=== PATIENT | female | born 1935 | race Caucasian/White ===

== ENCOUNTER 2016-03-15 09:10 | Outpatient (CLI) | payer MEDICARE | END 2016-03-15 09:11 | disposition home or self-care (01) | DX: M06.4 Inflammatory polyarthropathy (principal); M25.50 Pain in unspecified joint ==

== ENCOUNTER 2016-05-18 13:21 | Outpatient (CLI) | payer MEDICARE | END 2016-05-18 13:22 | disposition home or self-care (01) | DX: M81.0 Age-related osteoporosis without current pathological fracture (principal) ==

== ENCOUNTER 2016-06-04 08:35 | Outpatient (CLI) | payer MEDICARE | END 2016-06-04 08:36 | disposition home or self-care (01) | DX: I10 Essential (primary) hypertension (principal); R20.0 Anesthesia of skin ==

== ENCOUNTER 2016-07-09 12:57 | Outpatient (CLI) | payer MEDICARE ==
--- NOTE | 2016-07-10 14:46 | Ultrasound Report ---
BILATERAL CAROTID ARTERY ULTRASOUND: 07/09/2016 TECHNIQUE: Real-time sonographic vascular imaging was performed by the drupal developer through the carotid arteries utilizing both color-flow and Doppler spectral analysis. Multiple field representative/health education static images were saved for review. Vessel PSV cm/sec 2D Plaque Estimate % ICA/CCA PSV EDV cm/sec % Stenosis RCCA Prox 64 -- RCCA Dist 51 13 RECA 155 -- RT BULB 108 -- 2.12 21 CLAIRE Prox 98 -- 1.92 28 CLAIRE Mid 84 -- 1.65 25 CLAIRE Dist 65 -- 1.27 21 RVA 40 RVA flow direction: Antegrade. Vessel PSV cm/sec 2D Plaque Estimate % ICA/CCA PSV EDV cm/sec % Stenosis LCCA Prox 72 -- LCCA Dist 73 18 LECA 83 -- LFT BULB 341 -- 4.67 78 LICA Prox 162 -- 2.22 36 LICA Mid 105 -- 1.44 23 LICA Dist 68 -- 0.93 22 LVA 37 LVA flow direction: Antegrade. Velocity criteria are extrapolated from diameter data as defined by the Society of Radiologists in Ultrasound Consensus Conference Radiology 2003; 229; 340-346. Degree of Stenosis % ICA PSV cm/sec Plaque Estimate % ICA/CCA RSV Ratio ICA EDV cm/sec Normal < 125 None < 2.0 < 40 <50 < 125 < 50 < 2.0 < 40 50-69 125 - 130 >/= 50 2.0 - 4.0 40 - 100 >/= 70 but less than near occlusion > 230 >/= 50 > 4.0 > 100 Near occlusion High, low, or undetectable Visible lumen Variable Variable Total occlusion Undetectable No detectable lumen Not applicable Not applicable FINDINGS: A moderate amount of plaque is noted at the right carotid artery bifurcation. Some of the plaque is calcific and produces enough shadowing to obscure portions of the distal right common carotid artery and proximal right internal carotid artery. The Doppler values within the right internal carotid artery and right common carotid artery indicate no hemodynamically significant stenosis. With this degree of obscuration of the lumen of the distal right common carotid artery and proximal right internal carotid artery, be obscured. Recommend CTA of the carotid arteries for further evaluation. Left carotid artery demonstrates a significant amount of plaque at its bifurcation with extension into the left internal carotid artery. The plaque within the proximal left internal carotid artery is producing significant narrowing. This narrowing is greater than 70%. On the transverse images, it has the appearance of a stenosis in the 90% range. I strongly recommend, therefore, a contrast-enhanced CTA of the carotid arteries for further evaluation. Both vertebral arteries show antegrade flow. IMPRESSION: 1. MODERATE AMOUNT OF PLAQUE IS NOTED AT THE RIGHT CAROTID ARTERY BIFURCATION WITH EXTENSION INTO THE RIGHT INTERNAL CAROTID ARTERY. PART OF THIS PLAQUE IS CALCIFIC AND OBSCURING PORTIONS OF THE DISTAL RIGHT COMMON CAROTID ARTERY AND PROXIMAL RIGHT INTERNAL CAROTID ARTERY. RECOMMEND A CONTRAST-ENHANCED CTA OF THE CAROTID ARTERIES FOR FURTHER EVALUATION. 2. SIGNIFICANT AMOUNT OF PLAQUE IS NOTED AT THE LEFT CAROTID ARTERY BIFURCATION WITH EXTENSION TO THE LEFT INTERNAL CAROTID ARTERY. 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 STENOSIS COULD BE GREAT 90% CONSIDERING THE VISUAL IMAGES. STRONGLY RECOMMEND CONTRAST- ENHANCED CTA SOON POSSIBLE FOR FURTHER EVALUATION. COMMENT: Dr. Phan informed patient's physician, Dr. Chacko, of the above findings and recommendations on 07/09/2016 at 2:45 p.m. [facility]
== END 2016-07-09 12:58 | disposition home or self-care (01) ==
LOC: DI 12:57
PROVIDERS: ATTEND Family Medicine
DX: I65.22 Occlusion and stenosis of left carotid artery (principal)
CPT/HCPCS: 93880

== ENCOUNTER 2016-07-09 12:59 | Outpatient (CLI) | payer MEDICARE ==
--- NOTE | 2016-07-10 22:04 | Mammography Report ---
DIGITAL BILATERAL SCREENING MAMMOGRAM: 07/09/2016 CLINICAL HISTORY: This is a 80-year-old female in for routine screening mammogram. Patient has no family history of breast cancer. Patient has no prior breast biopsies. COMPARISON: 01/14/2006, 08/12/2008, 02/02/2014. TECHNIQUE: Craniocaudad and oblique lateral views of each breast were obtained with Hologic full field digital mammography. FINDINGS: Breast parenchyma is almost entirely composed of fat. No significant clusters of calcification are seen. No masses are noted. No change is detected. IMPRESSION: BREASTS APPEAR RADIOGRAPHICALLY BENIGN. BIRADS CATEGORY: 1, NEGATIVE. RECOMMENDATION: ANNUAL BILATERAL SCREENING MAMMOGRAPHY. STANDARD QUALIFYING STATEMENTS 1. This examination was reviewed with the aid of Computed-Aided Detection (CAD) . 2. A negative or benign imaging report should not delay biopsy if clinically suspicious findings are present. Consider surgical consultation if warranted. More than 5% of cancers are not identified by imaging. 3. Dense breasts may obscure an underlying neoplasm. JOB #: [id number] EXT JOB #: [id number] UZMA
== END 2016-07-09 13:00 | disposition home or self-care (01) ==
LOC: DI 12:59
PROVIDERS: ATTEND Family Medicine
DX: Z12.31 Encounter for screening mammogram for malignant neoplasm of breast (principal)
CPT/HCPCS: 77067

== ENCOUNTER 2016-08-13 11:41 | Outpatient (CLI) | payer MEDICARE | END 2016-08-13 11:42 | disposition home or self-care (01) | LOC: LAB.WCP 11:41 | PROVIDERS: ATTEND Family Medicine | DX: E53.8 Deficiency of other specified B group vitamins (principal) | CPT/HCPCS: 36415; 82607 ==

== ENCOUNTER 2016-09-24 10:19 | Outpatient (CLI) | payer MEDICARE ==
[2016-09-24 19:30] LABS: BASOPHILS % (AUTO) 0.5 %; EOSINOPHILS # (AUTO) 0.1 10^3/uL (0.0-0.7); EOSINOPHILS % (AUTO) 1.4 %; HCT - HEMATOCRIT 38.6 % (37.0-47.0); HGB - HEMOGLOBIN 12.7 g/dL (12.0-16.0); LYMPHOCYTES # (AUTO) 1.9 10^3/uL (1.5-3.5); MEAN CORPUSCULAR HEMOGLOBIN 32.1 pg (27.0-31.0); MEAN CORPUSCULAR VOLUME 97.4 fL (81.0-99.0); MEAN PLATELET VOLUME 10.4 fL (7.9-10.8); MONOCYTES # (AUTO) 0.6 10^3/uL (0.0-1.0); MONOCYTES % (AUTO) 9.9 %; NEUTROPHILS # (AUTO) 3.1 10^3/uL (1.5-6.6); NEUTROPHILS % (AUTO) 54.2 %; NUCLEATED RED BLOOD CELLS AUTO 0.1 /100WBC; RED BLOOD COUNT 3.96 10^6/uL (4.20-5.40); UNCORRECTED WHITE BLOOD COUNT 5.7 x10^3/uL; WHITE BLOOD COUNT 5.7 x10^3/uL (4.8-10.8)
[2016-09-24 20:07] LABS: FOLATE 11.26 ng/mL (5.90 - >24.8)
== END 2016-09-24 23:59 | disposition home or self-care (01) ==
LOC: LAB.WCP 10:19
PROVIDERS: ATTEND Family Medicine
DX: E53.8 Deficiency of other specified B group vitamins (principal)
CPT/HCPCS: 36415; 82607; 82746; 85025

== ENCOUNTER 2017-03-20 10:10 | Outpatient (CLI) | payer MEDICARE ==
[2017-03-20 13:18] LABS: ALBUMIN 4.2 g/dL (3.2-5.5); ALBUMIN/GLOBULIN RATIO 1.6 (1.0-2.2); ALKALINE PHOSPHATASE 76 IU/L (42-121); ALT ALANINE AMINOTRANSFERASE 17 IU/L (10-60); AST ASPARTATE AMINOTRANSFERASE 22 IU/L (10-42); BILIRUBIN,TOTAL 0.4 mg/dL (0.2-1.0); BUN - BLOOD UREA NITROGEN 8 mg/dL (6-20); CARBON DIOXIDE - CO2 24 mmol/L (21-32); CHLORIDE 102 mmol/L (101-111); CHOL/HDL RATIO 2.8 (<4.4); CHOLESTEROL 148 mg/dL; CREATININE 0.8 mg/dL (0.4-1.0); GFR - MDRD 69 (>89); GLUCOSE 80 mg/dL (70-100); HDL CHOLESTEROL 52 mg/dL; LDL CHOLESTEROL,CALCULATED 78 mg/dL; LDL/HDL RATIO 1.5 (<4.4); SODIUM 137 mmol/L (135-145); TOTAL PROTEIN 6.9 g/dL (6.7-8.2); VLDL CHOLESTEROL 18 mg/dL
== END 2017-03-20 10:11 | disposition home or self-care (01) ==
LOC: LAB.WCP 10:10
PROVIDERS: ATTEND Internal Medicine Cardiovascular Disease
DX: I25.119 Atherosclerotic heart disease of native coronary artery with unspecified angina pectoris (principal)
CPT/HCPCS: 36415; 80053; 80061; 83721

== ENCOUNTER 2017-07-10 09:20 | Outpatient (CLI) | payer MEDICARE | END 2017-07-10 09:21 | disposition short-term general hospital (02) | LOC: EMS 09:20 | PROVIDERS: ATTEND Surgery | DX: R07.9 Chest pain, unspecified (principal); R55 Syncope and collapse | CPT/HCPCS: A0425; A0427; A0888 ==

== ENCOUNTER 2017-07-30 11:25 | Outpatient (CLI) | payer MEDICARE ==
[2017-07-30 19:27] LABS: CALCIUM 9.1 mg/dL (8.5-10.3); CREATININE 0.7 mg/dL (0.4-1.0)
== END 2017-07-30 11:26 ==
LOC: LAB.WCP 11:25
PROVIDERS: ATTEND Family Medicine
DX: I10 Essential (primary) hypertension (principal)
CPT/HCPCS: 36415; 80048

== ENCOUNTER 2018-04-07 08:01 | Outpatient (CLI) | payer MEDICARE ==
[2018-04-07 12:18] LABS: BASOPHILS % (AUTO) 0.6 %; EOSINOPHILS # (AUTO) 0.1 10^3/uL (0.0-0.7); EOSINOPHILS % (AUTO) 1.4 %; HGB - HEMOGLOBIN 12.3 g/dL (12.0-16.0); LYMPHOCYTES # (AUTO) 2.6 10^3/uL (1.5-3.5); LYMPHOCYTES % (AUTO) 48.9 %; MEAN CORPUSCULAR HEMOGLOBIN 31.9 pg (27.0-31.0); MEAN CORPUSCULAR HGB CONC 33.5 g/dL (32.0-36.0); MEAN CORPUSCULAR VOLUME 95.3 fL (81.0-99.0); MONOCYTES # (AUTO) 0.4 10^3/uL (0.0-1.0); MONOCYTES % (AUTO) 7.7 %; NEUTROPHILS # (AUTO) 2.2 10^3/uL (1.5-6.6); NEUTROPHILS % (AUTO) 41.4 %; PLT - PLATELET COUNT 268 10^3/uL (130-450); RED BLOOD COUNT 3.85 10^6/uL (4.20-5.40); RED CELL DISTRIBUTION WIDTH 14.7 % (12.0-15.0); WHITE BLOOD COUNT 5.3 x10^3/uL (4.8-10.8)
[2018-04-07 13:06] LABS: ALBUMIN 4.1 g/dL (3.2-5.5); ALBUMIN/GLOBULIN RATIO 1.3 (1.0-2.2); ALKALINE PHOSPHATASE 83 IU/L (42-121); ALT ALANINE AMINOTRANSFERASE 21 IU/L (10-60); AST ASPARTATE AMINOTRANSFERASE 25 IU/L (10-42); BILIRUBIN,TOTAL 0.5 mg/dL (0.2-1.0); BUN - BLOOD UREA NITROGEN 9 mg/dL (6-20); CALCIUM 9.1 mg/dL (8.5-10.3); CARBON DIOXIDE - CO2 26 mmol/L (21-32); CHLORIDE 105 mmol/L (101-111); CHOL/HDL RATIO 2.5 (<4.4); CHOLESTEROL 179 mg/dL; CREATININE 0.7 mg/dL (0.4-1.0); GFR - MDRD 81 (>89); GLUCOSE 83 mg/dL (70-100); HDL CHOLESTEROL 73 mg/dL; LDL CHOLESTEROL,CALCULATED 82 mg/dL; LDL/HDL RATIO 1.1 (<4.4); SODIUM 139 mmol/L (135-145); TOTAL PROTEIN 7.2 g/dL (6.7-8.2); VLDL CHOLESTEROL 24 mg/dL
== END 2018-04-07 08:02 | disposition home or self-care (01) ==
LOC: LAB.WCP 08:01
PROVIDERS: ATTEND Family Medicine
DX: E53.8 Deficiency of other specified B group vitamins (principal); I25.10 Atherosclerotic heart disease of native coronary artery without angina pectoris
CPT/HCPCS: 36415; 80053; 80061; 82607; 83721; 83921; 85025

== ENCOUNTER 2018-10-21 16:30 | Outpatient (CLI) | payer MEDICARE | END 2018-10-21 23:59 | disposition home or self-care (01) | LOC: LAB.R 16:30 | PROVIDERS: ATTEND Family Medicine | DX: R35.0 Frequency of micturition (principal) | CPT/HCPCS: 87086 ==

== ENCOUNTER 2018-10-31 08:00 | Outpatient (CLI) | payer MEDICARE | END 2018-10-31 23:59 | disposition home or self-care (01) | LOC: LAB.WCP 08:00 | PROVIDERS: ATTEND Family Medicine | DX: R19.7 Diarrhea, unspecified (principal) | CPT/HCPCS: 81599; 87045; 87046; 87177; 87209; 87329; 87493 ==

== ENCOUNTER 2018-12-03 17:00 | Outpatient (CLI) | payer MEDICARE ==
[2018-12-03 13:19] LABS: H. PYLORIS ANTIGEN STL NEGATIVE (Negative)
== END 2018-12-03 23:59 | disposition home or self-care (01) ==
LOC: LAB.R 17:00
PROVIDERS: ATTEND Family Medicine
DX: K21.9 Gastro-esophageal reflux disease without esophagitis (principal)
CPT/HCPCS: 87338

== ENCOUNTER 2019-07-17 08:00 | Outpatient (CLI) | payer MEDICARE ==
[2019-07-17 14:09] LABS: ALBUMIN 4.1 g/dL (3.2-5.5); ALBUMIN/GLOBULIN RATIO 1.2 (1.0-2.2); ALKALINE PHOSPHATASE 87 IU/L (42-121); ALT ALANINE AMINOTRANSFERASE 22 IU/L (10-60); AST ASPARTATE AMINOTRANSFERASE 24 IU/L (10-42); BILIRUBIN,TOTAL 0.7 mg/dL (0.2-1.0); BUN - BLOOD UREA NITROGEN 12 mg/dL (6-20); CARBON DIOXIDE - CO2 25 mmol/L (21-32); CHLORIDE 107 mmol/L (101-111); CHOL/HDL RATIO 2.6 (<4.4); CHOLESTEROL 177 mg/dL; CREATININE 0.6 mg/dL (0.4-1.0); GLUCOSE 79 mg/dL (70-100); HDL CHOLESTEROL 67 mg/dL; LDL CHOLESTEROL,CALCULATED 87 mg/dL; LDL/HDL RATIO 1.3 (<4.4); SODIUM 140 mmol/L (135-145); TOTAL PROTEIN 7.4 g/dL (6.7-8.2); VLDL CHOLESTEROL 23 mg/dL
== END 2019-07-17 23:59 | disposition home or self-care (01) ==
LOC: LAB.WCP 08:00
PROVIDERS: ATTEND Hospitalist
DX: I25.10 Atherosclerotic heart disease of native coronary artery without angina pectoris (principal)
CPT/HCPCS: 36415; 80053; 80061; 83721

== ENCOUNTER 2019-09-10 10:24 | Outpatient (CLI) | payer MEDICARE ==
--- NOTE | 2019-09-10 10:57 | XRAY Report ---
Reason: ACUTE LOW BACK PAIN Procedure Date: 09/10/2019 Accession Number: [id number] / [id number] Procedure: WCP - Lumbar Spine 2 View CPT Code: Final Report FULL RESULT: PROCEDURE: Lumbar Spine 2 View INDICATIONS: Acute onset low back pain TECHNIQUE: 2 views of the lumbar spine were acquired. COMPARISON: None. FINDINGS: Bones: There are 5 nonrib-bearing lumbar-type vertebral bodies. There is dextroscoliosis in the lumbar spine centered at the L3-L4 level with approximately 18 degrees Vogt angle. There is approximately 3 mm lateral listhesis to the right of the L3 vertebral body with respect to L2. There is a mild rotational component to the scoliosis. There is no anterolisthesis or retrolisthesis. Age indeterminate wedging of the T12 vertebral body with approximately 10-15% height loss anteriorly and some indistinctness of the superior cortex. Vertebral body heights are otherwise maintained with intact cortical appearance. There is disc height loss from L1-L2 through L5-S1 with associated degenerative endplate change. Facet hypertrophy from L2 L3-L5 S1. Soft tissues: Overlying bowel gas pattern is normal. No suspicious soft tissue calcifications. IMPRESSION: Age-indeterminate height loss of the T12 vertebral body with some indistinctness of the superior cortex. Correlation for any point tenderness is requested, as there is some radiographic suspicion for acute compression fracture. If this is of clinical concern, further imaging evaluation could be performed with CT or MRI of the thoracolumbar junction. Reviewed by: Rudy Salamanca MD on 09/10/2019 10:56 AM PDT Approved by: Rudy Salamanca MD on 09/10/2019 10:56 AM PDT Station ID: [id number]
== END 2019-09-10 23:59 | disposition home or self-care (01) ==
LOC: DI.WCP 10:24
PROVIDERS: ATTEND Family Medicine
DX: R93.7 Abnormal findings on diagnostic imaging of other parts of musculoskeletal system (principal)
CPT/HCPCS: 72100

== ENCOUNTER 2019-09-10 18:24 | Outpatient (CLI) | payer MEDICARE | END 2019-09-10 18:25 | disposition EMS.NT | LOC: EMS 18:24 | PROVIDERS: ATTEND Surgery | DX: R53.1 Weakness (principal); M54.9 Dorsalgia, unspecified ==

== ENCOUNTER 2019-09-11 12:36 | Outpatient (CLI) | payer MEDICARE ==
--- NOTE | 2019-09-11 16:10 | CT Report ---
PROCEDURE: LUMBAR SPINE WO INDICATIONS: WEDGE COMPRESSION FRACTURE OF T11-T12 TECHNIQUE: Noncontrast 3 mm thick sections acquired from the T12 level to the sacrum. Sagittal and coronal refo rmats were constructed. For radiation dose reduction, the following was used: automated exposure co ntrol, adjustment of mA and/or kV according to patient size. COMPARISON: None. FINDINGS: Image quality: Excellent. Bones: There is normal bony alignment. There is approximately 17 degrees of convex right lumbar spi ne scoliosis. Loss of height noted in the T12 vertebral body compatible with acute compression fractu re. Compression fracture lucencies extend to the posterior cortex indicating burst type compression f racture. T12 compression fracture results in approximately 40% loss of normal vertebral body height. Minimally retropulsed bone fragment is associated with the T12 compression fracture which causes mild narrowing of the central canal without impingement upon the spinal cord. No suspicious lytic or cr tic bony lesions. No pars defects. Moderate L1-L2 degenerative disc changes. Mild to moderate L3-L4 and L5-S1 degenerative disc disease. Mild L2-L3 and L4-L5 degenerative disc disease. Mild L1-L2, L2- L3, L3-L4, L4-L5 and L5-S1 facet hypertrophy. Soft tissues: No retroperitoneal masses or hematomas. Visualized aorta is normal in caliber. Scatte red atherosclerotic calcifications are noted in the visualized abdominal and pelvic vasculature. Mu ltiple diverticuli noted in the visualized colon without evidence of diverticulitis. IMPRESSION: 1. Acute T12 burst-type compression fracture which results in approximately 40% loss of normal verteb ral body height. No kyphosis or significant retropulsion associated with the T12 compression fracture . 2. Multilevel degenerative disc disease. 3. Multilevel facet arthropathy. 4. No significant central canal narrowing. 5. No significant neural foraminal narrowing. 6. No neural compression. Reviewed by: Shelbi Conner MD, PhD on 09/11/2019 4:09 PM PDT Approved by: Shelbi Conner MD, PhD on 09/11/2019 4:09 PM PDT Station ID: [id number]
--- NOTE | 2019-09-11 16:29 | CT Report ---
PROCEDURE: THORACIC SPINE WO INDICATIONS: WEDGE COMPRESSION FRACTURE OF T11-T12 TECHNIQUE: Noncontrast 3 mm thick sections acquired through the region of interest in the thoracic spine. Sagit brain and coronal reformats were then constructed. For radiation dose reduction, the following was used : automated exposure control, adjustment of mA and/or kV according to patient size. COMPARISON: None. FINDINGS: Image quality: Excellent. Bones: There is normal overall bony alignment. Acute-appearing T4 and T12 compression deformities no wilma. T4 compression deformity results in approximately 10% loss of normal anterior vertebral body hei ght. The T12 compression deformity results in approximately 30-40% loss of normal vertebral body heig ht. T12 compression fracture extends to the posterior cortex compatible with burst type compression f racture with minimally retropulsed bone fragment. No kyphosis associated with either the T4 or T12 co mpression deformities. No suspicious sclerotic or lytic bony lesions. Mild degenerative disc changes noted throughout the thoracic spine. No significant central canal narrowing. No significant neural f oraminal narrowing. No definite neural compression. Soft tissues: No paravertebral masses or hematomas. Visualized posteromedial lungs appear clear. IMPRESSION: 1. Acute appearing T4 and T12 compression fractures. 2. Multilevel degenerative disc disease. 3. No significant central canal narrowing. 4. No significant neural foraminal narrowing. 5. No definite neural compression. Reviewed by: Shelbi Conner MD, PhD on 09/11/2019 4:27 PM PDT Approved by: Shelbi Conner MD, PhD on 09/11/2019 4:27 PM PDT Station ID: [id number]
== END 2019-09-11 12:37 | disposition home or self-care (01) ==
LOC: DI 12:36
PROVIDERS: ATTEND Family Medicine
DX: S22.081A Stable burst fracture of T11-T12 vertebra, initial encounter for closed fracture (principal); S22.040A Wedge compression fracture of fourth thoracic vertebra, initial encounter for closed fracture; M51.34 Other intervertebral disc degeneration, thoracic region; M51.36 Other intervertebral disc degeneration, lumbar region
CPT/HCPCS: 72128; 72131

== ENCOUNTER 2019-10-16 17:47 | Outpatient (CLI) | payer MEDICARE | END 2019-10-16 17:48 | disposition EMS.NT | LOC: EMS 17:47 | PROVIDERS: ATTEND Surgery | DX: F41.9 Anxiety disorder, unspecified (principal) ==

== ENCOUNTER 2019-10-23 20:14 | Outpatient (CLI) | payer MEDICARE | END 2019-10-23 20:15 | disposition EMS.NT | LOC: EMS 20:14 | PROVIDERS: ATTEND Surgery | DX: Z03.89 Encounter for observation for other suspected diseases and conditions ruled out (principal) ==

== ENCOUNTER 2020-01-05 08:00 | Outpatient (CLI) | payer MEDICARE ==
[2020-01-05 17:47] LABS: BASOPHILS % (AUTO) 0.5 %; EOSINOPHILS % (AUTO) 0.6 %; HGB - HEMOGLOBIN 12.4 g/dL (12.0-16.0); LYMPHOCYTES # (AUTO) 2.5 10^3/uL (1.5-3.5); LYMPHOCYTES % (AUTO) 39.3 %; MEAN CORPUSCULAR HEMOGLOBIN 32.6 pg (27.0-31.0); MEAN CORPUSCULAR HGB CONC 32.7 g/dL (32.0-36.0); MEAN CORPUSCULAR VOLUME 99.7 fL (81.0-99.0); MEAN PLATELET VOLUME 11.7 fL (7.9-10.8); MONOCYTES # (AUTO) 0.6 10^3/uL (0.0-1.0); NEUTROPHILS # (AUTO) 3.2 10^3/uL (1.5-6.6); NEUTROPHILS % (AUTO) 50.4 %; PLT - PLATELET COUNT 299 10^3/uL (130-450); RED CELL DISTRIBUTION WIDTH 13.5 % (12.0-15.0); WHITE BLOOD COUNT 6.4 x10^3/uL (4.8-10.8)
[2020-01-05 18:18] LABS: ALBUMIN 4.1 g/dL (3.2-5.5); ALBUMIN/GLOBULIN RATIO 1.5 (1.0-2.2); ALKALINE PHOSPHATASE 99 IU/L (42-121); ALT ALANINE AMINOTRANSFERASE 30 IU/L (10-60); AST ASPARTATE AMINOTRANSFERASE 32 IU/L (10-42); BILIRUBIN,TOTAL 0.9 mg/dL (0.2-1.0); BUN - BLOOD UREA NITROGEN 11 mg/dL (6-20); CALCIUM 9.2 mg/dL (8.5-10.3); CARBON DIOXIDE - CO2 24 mmol/L (21-32); CHLORIDE 108 mmol/L (101-111); CHOL/HDL RATIO 2.4 (<4.4); CHOLESTEROL 156 mg/dL; CREATININE 0.6 mg/dL (0.4-1.0); GLUCOSE 94 mg/dL (70-100); HDL CHOLESTEROL 64 mg/dL; LDL CHOLESTEROL,CALCULATED 72 mg/dL; LDL/HDL RATIO 1.1 (<4.4); SODIUM 140 mmol/L (135-145); TOTAL PROTEIN 6.9 g/dL (6.7-8.2); VLDL CHOLESTEROL 20 mg/dL
== END 2020-01-05 23:59 | disposition home or self-care (01) ==
LOC: LAB.WCP 08:00
PROVIDERS: ATTEND Family Medicine
DX: I25.10 Atherosclerotic heart disease of native coronary artery without angina pectoris (principal); E53.8 Deficiency of other specified B group vitamins
CPT/HCPCS: 36415; 80053; 80061; 82607; 83721; 84443; 85025

== ENCOUNTER 2020-08-02 19:27 | Emergency (ER) | payer MEDICARE ==
--- NOTE | 2020-08-02 20:01 | ED Physician Documentation ---
History of Present Illness - Stated complaint Stated Complaint: RT ARM PX - Chief complaint Chief Complaint: Ext Problem - Additonal information Additional information: 85-year-old female presents to the emergency department for evaluation of 2 to 3 weeks right shoulder pain. She reports she injured it pushing herself up from the bathtub. However she did not have any fall or other known trauma. No swelling or erythema. No fevers. Patient is quite quiet she is also frustrated she seems upset about the poor health of her who is bedbound. She has taken in Tylenol as well as used icy hot which has helped somewhat with the pain Review of Systems Constitutional: denies: Fever, Chills Eyes: reports: Reviewed and negative Ears: reports: Reviewed and negative Nose: reports: Reviewed and negative Throat: reports: Reviewed and negative Cardiac: reports: Reviewed and negative Respiratory: reports: Reviewed and negative GI: reports: Reviewed and negative Musculoskeletal: reports: Joint pain (Right shoulder) Neurologic: reports: Reviewed and negative PD PAST MEDICAL HISTORY - Past Medical History Past Medical History: Yes Cardiovascular: Coronary artery disease - Past Surgical History 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 Cardiovascular: Coronary stent - Present Medications Home Medications: Ambulatory Orders Medication Instructions Recorded Confirmed Home Medications Unobtainable 08/02/20 08/02/20 [HOME MEDICATIONS UNOBTAINABLE] - Allergies Allergies/Adverse Reactions: Allergies Allergy/AdvReac Type Severity Reaction Status Date / Time butorphanol [From Stadol] Allergy Hallucinati Verified 08/02/20 19:40 ons cephalexin [From Keflex] Allergy Hives Verified 08/02/20 19:40 erythromycin base Allergy Nausea Verified 08/02/20 19:40 methotrexate Allergy Unknown Verified 08/02/20 19:40 - Social History Does the pt smoke?: No Smoking Status: Never smoker Does the pt drink ETOH?: No Does the pt have substance abuse?: No - Immunizations Immunizations are current?: Yes PD ED PE EXPANDED - General General: Alert, Other - Extremities Extremities: Right shoulder (mild tenderness with palpationof bicepital tendon. FULL ROM in all planes. negative for impingment. no swelling, erythema. No pain in elbow, wrist elicited) Results - Vitals Vitals: Vital Signs - 24 hr 08/02/20 08/02/20 19:35 19:55 Temperature 36.2 C L 36.3 C L Heart Rate 66 67 Respiratory 16 16 Rate Blood Pressure 140/69 H 140/69 H O2 Saturation 98 98 Oxygen O2 Source Room air - Rads (name of study) right shoulder Radiology: Final report received (No acute finding. Chronic degenerative changes.) PD MEDICAL DECISION MAKING - ED course Complexity details: reviewed results, re-evaluated patient, d/w patient ED course: 85-year-old female presents the emergency department for evaluation of a few weeks right shoulder pain. Most of the pain is near the bicipital tendon. However she does not have any signs of impingement on exam. X-ray suggests arthritis but no acute fracture or dislocation. History is not consistent with an infection. I suspect that she would benefit from long-term evaluation with physical therapy to help improve the symptoms. She does have relief of symptoms with Tylenol as well as [id number] IcyHot. Departure - Departure Disposition: 01 Home, Self Care Clinical Impression: Right shoulder pain Qualifiers: Chronicity: acute Qualified Code(s): M25.511 - Pain in right shoulder Sprain of right shoulder Qualifiers: Encounter type: initial encounter Shoulder sprain type: unspecified sprain Qualified Code(s): S43.401A - Unspecified sprain of right shoulder joint, initial encounter Condition: Stable Record reviewed to determine appropriate education?: Yes Instructions: ED Strain Muscle Ext Comments: The x-ray of your shoulder shows that you are developing arthritis in it. I do suspect a mild sprain as well. I think that this will get better with time if you can avoid the movements that cause the pain. I have prescribed a little bit of hydrocodone to help with the severe pain. It is important that you continue to move your shoulder though to prevent it from getting should frozen Please discuss this ED visit with your primary care provider. You may benefit from referral to physical therapy for your shoulder.
--- NOTE | 2020-08-02 20:23 | XRAY Report ---
PROCEDURE: Shoulder 3 View RT INDICATIONS: Pain TECHNIQUE: 4 views of the shoulder were acquired. COMPARISON: None. FINDINGS: Bones: No acute fracture. Severe osteophytic changes of the glenohumeral joint. Elevation of the jordan sage suggesting chronic rotator cuff tear. Soft tissues: No suspicious soft tissue calcifications. IMPRESSION: No acute finding. Chronic degenerative changes. Reviewed by: Rudy Salamanca MD on 08/02/2020 8:22 PM PDT Approved by: Rudy Salamanca MD on 08/02/2020 8:22 PM PDT Station ID: [id number]
[2020-08-02 21:16] VITALS: BP 138/70
== END 2020-08-02 21:14 | disposition home or self-care (01) ==
LOC: ED 19:27
DX: S43.401A Unspecified sprain of right shoulder joint, initial encounter (principal); X58.XXXA Exposure to other specified factors, initial encounter; Y93.E1 Activity, personal bathing and showering
CPT/HCPCS: 99283

== ENCOUNTER 2020-09-12 13:05 | Outpatient (CLI) | payer MEDICARE ==
[~2020-09-12 13:05] MED LIST: BUFFERED LIDOCAINE 10 ML SYRINGE ONE; ROPIVACAINE 0.5% PF 20 ML AMPULE ONE; TRIAMCINOLONE 40 MG/ML VIAL ONE
[2020-09-12] MEDS ORDERED: iohexoL-240 10 ML VIAL IVP ONE (14:03)
[2020-09-12] MEDS ORDERED: ROPIVACAINE 0.5% PF 20 ML AMPULE EP ONE (14:04)
[2020-09-12] MEDS ORDERED: BUFFERED LIDOCAINE 10 ML SYRINGE IU ONE (14:05)
[2020-09-12] MEDS ORDERED: TRIAMCINOLONE 40 MG/ML VIAL IM ONE (14:05)
--- NOTE | 2020-09-12 15:22 | XRAY Report ---
PROCEDURE: Inj/Aspiration Major Joint INDICATIONS: OSTEOARTHRITIS RIGHT GLENOHUMERAL JOINT CONTRAST: CONTRAST: omnipaque 240 FLUORO TIME: FLUORO TIME: 0.6 min and NUMBER IMAGES: 3 TECHNIQUE: The indications, alternatives, benefits, risks, and complications of the procedure were explained to the patient. Written informed consent was obtained and placed in the chart. The patient was placed in an appropriate position on the fluoroscopy table, and a site was chosen for percutaneous access un umair fluoroscopic guidance. Local anesthetic was administered using a 1% lidocaine solution. A hypod ermic or spinal needle was then used to access the symptomatic joint. Intra-articular location of th e needle tip was confirmed by injecting a small amount of contrast, followed by steroid administratio n. The needle was then withdrawn, and a bandage applied to the puncture site. FINDINGS: Joint injected: Right glenohumeral joint Medications injected: 7 mL of 40 mg/mL Kenalog and 0.5% Ropivacaine mixture. Complications: None. Preinjection pain: 10 out of 10 Postinjection pain: 3 out of 10 IMPRESSION: Successful fluoroscopically guided administration of steroid and anaesthetic solution into the right glenohumeral joint. Reviewed by: Demetra Dawson MD on 09/12/2020 3:21 PM PDT Approved by: Demetra Dawson MD on 09/12/2020 3:21 PM PDT Station ID: [id number]
== END 2020-09-12 13:06 | disposition home or self-care (01) ==
LOC: DI 13:05
PROVIDERS: ATTEND Orthopaedic Surgery
DX: M19.011 Primary osteoarthritis, right shoulder (principal)
CPT/HCPCS: 20610; 77002; Q9966

== ENCOUNTER 2020-11-14 09:05 | Outpatient (CLI) | payer MEDICARE ==
[2020-11-14 12:00] LABS: BASOPHILS % (AUTO) 0.5 %; EOSINOPHILS # (AUTO) 0.1 10^3/uL (0.0-0.7); EOSINOPHILS % (AUTO) 0.8 %; HCT - HEMATOCRIT 39.5 % (37.0-47.0); HGB - HEMOGLOBIN 12.8 g/dL (12.0-16.0); LYMPHOCYTES # (AUTO) 1.9 10^3/uL (1.5-3.5); LYMPHOCYTES % (AUTO) 31.1 %; MEAN CORPUSCULAR HGB CONC 32.4 g/dL (32.0-36.0); MEAN CORPUSCULAR VOLUME 101.8 fL (81.0-99.0); MEAN PLATELET VOLUME 11.5 fL (7.9-10.8); MONOCYTES # (AUTO) 0.7 10^3/uL (0.0-1.0); MONOCYTES % (AUTO) 10.6 %; NEUTROPHILS # (AUTO) 3.5 10^3/uL (1.5-6.6); NEUTROPHILS % (AUTO) 56.8 %; PLT - PLATELET COUNT 324 10^3/uL (130-450); RED BLOOD COUNT 3.88 10^6/uL (4.20-5.40); RED CELL DISTRIBUTION WIDTH 14.3 % (12.0-15.0); WHITE BLOOD COUNT 6.2 x10^3/uL (4.8-10.8)
[2020-11-14 12:18] LABS: ALBUMIN 4.4 g/dL (3.2-5.5); ALBUMIN/GLOBULIN RATIO 1.6 (1.0-2.2); ALKALINE PHOSPHATASE 64 IU/L (42-121); ALT ALANINE AMINOTRANSFERASE 33 IU/L (10-60); AST ASPARTATE AMINOTRANSFERASE 32 IU/L (10-42); BILIRUBIN,TOTAL 0.9 mg/dL (0.2-1.0); BUN - BLOOD UREA NITROGEN 9 mg/dL (6-20); CALCIUM 9.2 mg/dL (8.5-10.3); CARBON DIOXIDE - CO2 26 mmol/L (21-32); CHLORIDE 99 mmol/L (101-111); CHOL/HDL RATIO 2.2 (<4.4); CHOLESTEROL 162 mg/dL; CREATININE 0.6 mg/dL (0.4-1.0); GFR - MDRD 95 (>89); GLUCOSE 102 mg/dL (70-100); HDL CHOLESTEROL 73 mg/dL; LDL CHOLESTEROL,CALCULATED 71 mg/dL; POTASSIUM 4.2 mmol/L (3.5-5.0); SODIUM 135 mmol/L (135-145); TOTAL PROTEIN 7.1 g/dL (6.7-8.2); TRIGLYCERIDES 90 mg/dL; VLDL CHOLESTEROL 18 mg/dL
== END 2020-11-14 23:59 | disposition home or self-care (01) ==
LOC: LAB.WCP 09:05
PROVIDERS: ATTEND Family Medicine
DX: I10 Essential (primary) hypertension (principal); I25.10 Atherosclerotic heart disease of native coronary artery without angina pectoris; E53.8 Deficiency of other specified B group vitamins
CPT/HCPCS: 36415; 80053; 80061; 82607; 83721; 85025

== ENCOUNTER 2021-07-04 11:11 | Outpatient (CLI) | payer MEDICARE ==
[2021-07-04 17:59] LABS: ALBUMIN 4.5 g/dL (3.2-5.5); ALBUMIN/GLOBULIN RATIO 1.7 (1.0-2.2); ALKALINE PHOSPHATASE 64 IU/L (42-121); ALT ALANINE AMINOTRANSFERASE 19 IU/L (10-60); AST ASPARTATE AMINOTRANSFERASE 21 IU/L (10-42); BILIRUBIN,TOTAL 0.4 mg/dL (0.2-1.0); BUN - BLOOD UREA NITROGEN 12 mg/dL (6-20); CARBON DIOXIDE - CO2 24 mmol/L (21-32); CHLORIDE 100 mmol/L (101-111); CHOL/HDL RATIO 2.9 (<4.4); CHOLESTEROL 175 mg/dL; CREATININE 0.8 mg/dL (0.4-1.0); GFR - MDRD 69 (>89); GLUCOSE 120 mg/dL (70-100); HDL CHOLESTEROL 60 mg/dL; LDL CHOLESTEROL,CALCULATED 78 mg/dL; LDL/HDL RATIO 1.3 (<4.4); POTASSIUM 5.1 mmol/L (3.5-5.0); SODIUM 133 mmol/L (135-145); TOTAL PROTEIN 7.1 g/dL (6.7-8.2); TRIGLYCERIDES 185 mg/dL; VLDL CHOLESTEROL 37 mg/dL
[2021-07-04 18:16] LABS: BASOPHILS % (AUTO) 0.6 %; EOSINOPHILS % (AUTO) 0.6 %; HCT - HEMATOCRIT 37.3 % (37.0-47.0); HGB - HEMOGLOBIN 12.2 g/dL (12.0-16.0); LYMPHOCYTES # (AUTO) 2.6 10^3/uL (1.5-3.5); LYMPHOCYTES % (AUTO) 35.6 %; MEAN CORPUSCULAR HEMOGLOBIN 33.1 pg (27.0-31.0); MEAN CORPUSCULAR HGB CONC 32.7 g/dL (32.0-36.0); MEAN CORPUSCULAR VOLUME 101.1 fL (81.0-99.0); MEAN PLATELET VOLUME 11.1 fL (7.9-10.8); MONOCYTES # (AUTO) 0.6 10^3/uL (0.0-1.0); MONOCYTES % (AUTO) 8.7 %; NEUTROPHILS # (AUTO) 3.9 10^3/uL (1.5-6.6); NEUTROPHILS % (AUTO) 54.2 %; PLT - PLATELET COUNT 341 10^3/uL (130-450); RED BLOOD COUNT 3.69 10^6/uL (4.20-5.40); RED CELL DISTRIBUTION WIDTH 13.5 % (12.0-15.0); WHITE BLOOD COUNT 7.2 x10^3/uL (4.8-10.8)
[2021-07-04 20:55] LABS: ESTIMATED AVERAGE GLUCOSE 105 mg/dL (70-100); HEMOGLOBIN A1c% 5.3 % (4.27-6.07)
== END 2021-07-04 11:12 | disposition home or self-care (01) ==
LOC: LAB.N 11:11
PROVIDERS: ATTEND Family Medicine
DX: I10 Essential (primary) hypertension (principal); I63.9 Cerebral infarction, unspecified; E53.8 Deficiency of other specified B group vitamins; R73.01 Impaired fasting glucose
CPT/HCPCS: 36415; 80053; 80061; 82607; 83036; 83721; 85025

== ENCOUNTER 2022-04-03 09:39 | Outpatient (CLI) | payer MEDICARE | END 2022-04-03 09:40 | disposition critical access hospital (66) | LOC: EMS 09:39 | DX: R41.0 Disorientation, unspecified (principal); R41.89 Other symptoms and signs involving cognitive functions and awareness | CPT/HCPCS: A0425; A0429 ==

== ENCOUNTER 2022-04-03 09:57 | Observation (INO) | payer MEDICARE ==
[2022-04-03] MEDS ORDERED: SODIUM CHLORIDE 0.9% 500 ML IV STA (10:16)
[2022-04-03 10:23] LABS: BASOPHILS % (AUTO) 0.2 %; HCT - HEMATOCRIT 37.1 % (37.0-47.0); HGB - HEMOGLOBIN 12.3 g/dL (12.0-16.0); LYMPHOCYTES # (AUTO) 1.2 10^3/uL (1.5-3.5); MEAN CORPUSCULAR HGB CONC 33.2 g/dL (32.0-36.0); MEAN CORPUSCULAR VOLUME 96.6 fL (81.0-99.0); MEAN PLATELET VOLUME 10.6 fL (7.9-10.8); MONOCYTES # (AUTO) 0.8 10^3/uL (0.0-1.0); MONOCYTES % (AUTO) 8.9 %; NEUTROPHILS # (AUTO) 7.2 10^3/uL (1.5-6.6); NEUTROPHILS % (AUTO) 77.7 %; PLT - PLATELET COUNT 297 10^3/uL (130-450); RED BLOOD COUNT 3.84 10^6/uL (4.20-5.40); RED CELL DISTRIBUTION WIDTH 13.5 % (12.0-15.0); WHITE BLOOD COUNT 9.2 x10^3/uL (4.8-10.8)
--- NOTE | 2022-04-03 10:23 | ED Physician Documentation ---
PD HPI ALTERED MENTAL STATUS - Stated complaint Stated Complaint: CODE STROKE - Chief complaint Chief Complaint: Neuro - History obtained from History obtained from: Patient (she is unable to give history herself - obtained from EMS/family.), Family, EMS - History of Present Illness Timing - onset: How many days ago (Reportedly onset about 4 days ago of some confusion and incoordination. She typically interacts well and writes in a journal. The handwriting and content have been worsening in retrospect and today the patient was not expressing any verbal and poorly following commands.) Timing - details: Gradual onset, Still present (worsened today.) Quality / character: Less responsive, Confused, Other (nonverbal/aphasia.) Associated symptoms: Seizure activity (no witnessed but patient was noted to have tongue abrasion by family.). No: Fever Contributing factors: Anticoagulated (plavix), Other (reportedly prior stroke without unilateral deficits.). No: Diabetic, Known dementia Basline status: Alert and oriented X 3, Ambulatory, Other (family told EMS that patient is usually ambulatory and does write in a journal daily.) Treatment [employer]: Accucheck Similar symptoms before: Has not had sx before Recently seen: Not recently seen Review of Systems Unable to obtain: AMS (with confused and expressive aphasia, agnosia.) PD PAST MEDICAL HISTORY - Past Medical History Cardiovascular: Hypertension Respiratory: None Neuro: CVA GI: None - Present Medications Home Medications: Ambulatory Orders Medication Instructions Recorded Confirmed Atorvastatin Calcium [Lipitor] 80 mg PO QPM 06/02/21 04/03/22 Clopidogrel [Plavix] 1 tab PO DAILY 06/02/21 04/03/22 Famotidine [Pepcid] 20 mg PO DAILY 06/02/21 04/03/22 Metoprolol Succinate [Toprol Xl] 50 mg PO DAILY 06/02/21 04/03/22 Aspirin [[place] Aspirin] 81 mg PO DAILY 04/03/22 04/03/22 Nitroglycerin [Nitrostat] 0.4 mg SL Q5MIN PRN 04/03/22 04/03/22 - Allergies Allergies/Adverse Reactions: Allergies Allergy/AdvReac Type Severity Reaction Status Date / Time losartan Allergy Intermediate Itching Verified 04/03/22 14:42 lisinopril AdvReac Intermediate Cough Verified 04/03/22 14:42 PD ED PE NORMAL - Vitals Vital signs reviewed: Yes - General General: No acute distress, Well developed/nourished, Other (she is not interacting with me on exam, looking elsewhere as i talk iwth her. Not following direction. does have open eyes and sitting up on her own, so not sleepy nor delerious. Just poor interaction and aphasia. seems indifferent to surroundings. ) - HEENT HEENT: Atraumatic, PERRL, EOMI, Other (abrasion/lac right side of tongue.) - Neck Neck: Supple, no meningeal sign, No bony TTP, No adenopathy - Cardiac Cardiac: RRR, No murmur - Respiratory Respiratory: Clear bilaterally - Abdomen Abdomen: Soft, Non tender - Derm Derm: Normal color, Warm and dry - Extremities Extremities: Normal ROM s pain, No edema, No calf tenderness / cord - Neuro Neuro: market reporter 2-12 intact, No motor deficit Eye Opening: Spontaneous Motor: Obeys Commands Verbal: Incomprehensible GCS Score: 12 - Psych Psych: No: Normal affect (flat and noninteractive) NIHSS - Level of Consciousness Level of consciousness: (0) Alert, Keenly responsive LOC Questions: (2) Answers neither correct LOC Commands: (2)Performs none - Gaze Best Gaze: (0) Normal - Visual Visual: (0) No loss - Facial Palsy Facial Palsy: (0) Normal, symmetrical movement - Motor Arms (both separate) Motor Arm (right): (3) No effort against gravity Motor Arm (left): (1) Drift - Motor Legs (both separate) Motor Leg (right): (3) No effort against gravity Motor Leg (left): (2) Some effort against gravity - Limb Ataxia Limb Ataxia: (2) Present in 2 limbs - Sensory Sensory: (1) Lacr-ne-okgcezak loss - Best Language Best Language: (2) Severe aphasia - Dysarthria Dysarthria: (0) Normal - Extinction and Inattention (formally neg Extinction and inattention: (1) Visual,tactile,auditory,spatial, or personal inattention - Total Score/Results Total Score/Result: 19 Results - Vitals Vitals: Vital Signs - 24 hr 04/03/22 04/03/22 04/03/22 10:13 11:14 11:38 Temperature 37.1 C Heart Rate 88 95 88 Respiratory 18 18 18 Rate Blood Pressure 186/99 H 181/70 H 188/75 H O2 Saturation 100 99 100 04/03/22 04/03/22 04/03/22 12:37 13:15 13:49 Temperature Heart Rate 82 97 89 Respiratory 18 18 18 Rate Blood Pressure 151/74 H 176/109 H 182/89 H O2 Saturation 98 99 99 04/03/22 14:13 Temperature Heart Rate 80 Respiratory 18 Rate Blood Pressure 161/150 H O2 Saturation 100 Oxygen O2 Source Room air - Labs Labs: Laboratory Tests 04/03/22 04/03/22 04/03/22 10:17 10:17 10:17 WBC 9.2 RBC 3.84 L Hgb 12.3 Hct 37.1 MCV 96.6 MCH 32.0 H MCHC 33.2 RDW 13.5 Plt Count 297 MPV 10.6 Neut # (Auto) 7.2 H Lymph # (Auto) 1.2 L [place] # (Auto) 0.8 Eos # (Auto) 0.0 Baso # (Auto) 0.0 Absolute Nucleated RBC 0.00 Nucleated RBC % 0.0 ESR PT 11.1 INR 1.0 Sodium 130 L Potassium 3.7 Chloride 96 L Carbon Dioxide 22 Anion Gap 12.0 BUN 7 Creatinine 0.6 Estimated GFR (MDRD) 95 Glucose 108 H POC Whole Bld Glucose Calcium 9.2 Magnesium 2.1 Total Bilirubin 1.0 AST 22 ALT 17 Alkaline Phosphatase 70 Total Protein 7.3 Albumin 4.5 Globulin 2.8 Albumin/Globulin Ratio 1.6 Lipase 44 Urine Color Urine Clarity Urine pH Ur Specific [place] Urine Protein Urine Glucose (UA) Urine Ketones Urine Occult Blood Urine Nitrite Urine Bilirubin Urine Urobilinogen Ur Leukocyte Esterase Ur Microscopic Review Urine Culture Comments Nasal Adenovirus (PCR) Nasal B. parapertussis DNA (PCR) Nasal Coronavir 229E PCR Nasal Coronavir HKU1 PCR Nasal Coronavir NL63 PCR Nasal Coronavir OC43 PCR Nasal Enterovir/Rhinovir PCR Nasal Influenza B PCR Nasal Influenza A PCR Nasal Parainfluen 1 PCR Nasal Parainfluen 2 PCR Nasal Parainfluen 3 PCR Nasal Parainfluen 4 PCR Nasal RSV (PCR) Nasal B.pertussis DNA PCR Nasal C.pneumoniae (PCR) Joshua Human Metapneumo PCR Nasal M.pneumoniae (PCR) Nasal SARS-CoV-2 (PCR) Urine Opiates Screen Ur Oxycodone Screen Urine Methadone Screen Ur Propoxyphene Screen Ur Barbiturates Screen Ur Tricyclics Screen Ur Phencyclidine Scrn Ur Amphetamine Screen U Methamphetamines Scrn U Benzodiazepines Scrn Urine Cocaine Screen U Cannabinoids Screen Ethyl Alcohol < 5.0 04/03/22 04/03/22 04/03/22 10:17 10:55 10:59 WBC RBC Hgb Hct MCV MCH MCHC RDW Plt Count MPV Neut # (Auto) Lymph # (Auto) [place] # (Auto) Eos # (Auto) Baso # (Auto) Absolute Nucleated RBC Nucleated RBC % ESR 19 PT INR Sodium Potassium Chloride Carbon Dioxide Anion Gap BUN Creatinine Estimated GFR (MDRD) Glucose POC Whole Bld Glucose 91 Calcium Magnesium Total Bilirubin AST ALT Alkaline Phosphatase Total Protein Albumin Globulin Albumin/Globulin Ratio Lipase Urine Color Urine Clarity Urine pH Ur Specific [place] Urine Protein Urine Glucose (UA) Urine Ketones Urine Occult Blood Urine Nitrite Urine Bilirubin Urine Urobilinogen Ur Leukocyte Esterase Ur Microscopic Review Urine Culture Comments Nasal Adenovirus (PCR) NOT DETECTED Nasal B. parapertussis DNA (PCR) NOT DETECTED Nasal Coronavir 229E PCR NOT DETECTED Nasal Coronavir HKU1 PCR NOT DETECTED Nasal Coronavir NL63 PCR NOT DETECTED Nasal Coronavir OC43 PCR NOT DETECTED Nasal Enterovir/Rhinovir PCR NOT DETECTED Nasal Influenza B PCR NOT DETECTED Nasal Influenza A PCR NOT DETECTED Nasal Parainfluen 1 PCR NOT DETECTED Nasal Parainfluen 2 PCR NOT DETECTED Nasal Parainfluen 3 PCR NOT DETECTED Nasal Parainfluen 4 PCR NOT DETECTED Nasal RSV (PCR) NOT DETECTED Nasal B.pertussis DNA PCR NOT DETECTED Nasal C.pneumoniae (PCR) NOT DETECTED Joshua Human Metapneumo PCR NOT DETECTED Nasal M.pneumoniae (PCR) NOT DETECTED Nasal SARS-CoV-2 (PCR) NOT DETECTED Urine Opiates Screen Ur Oxycodone Screen Urine Methadone Screen Ur Propoxyphene Screen Ur Barbiturates Screen Ur Tricyclics Screen Ur Phencyclidine Scrn Ur Amphetamine Screen U Methamphetamines Scrn U Benzodiazepines Scrn Urine Cocaine Screen U Cannabinoids Screen Ethyl Alcohol 04/03/22 10:59 WBC RBC Hgb Hct MCV MCH MCHC RDW Plt Count MPV Neut # (Auto) Lymph # (Auto) [place] # (Auto) Eos # (Auto) Baso # (Auto) Absolute Nucleated RBC Nucleated RBC % ESR PT INR Sodium Potassium Chloride Carbon Dioxide Anion Gap BUN Creatinine Estimated GFR (MDRD) Glucose POC Whole Bld Glucose Calcium Magnesium Total Bilirubin AST ALT Alkaline Phosphatase Total Protein Albumin Globulin Albumin/Globulin Ratio Lipase Urine Color LIGHT YELLOW Urine Clarity CLEAR Urine pH 7.0 Ur Specific [place] 1.010 Urine Protein NEGATIVE Urine Glucose (UA) NEGATIVE Urine Ketones 15 H Urine Occult Blood NEGATIVE Urine Nitrite NEGATIVE Urine Bilirubin NEGATIVE Urine Urobilinogen 0.2 (NORMAL) Ur Leukocyte Esterase NEGATIVE Ur Microscopic Review NOT INDICATED Urine Culture Comments NOT INDICATED Nasal Adenovirus (PCR) Nasal B. parapertussis DNA (PCR) Nasal Coronavir 229E PCR Nasal Coronavir HKU1 PCR Nasal Coronavir NL63 PCR Nasal Coronavir OC43 PCR Nasal Enterovir/Rhinovir PCR Nasal Influenza B PCR Nasal Influenza A PCR Nasal Parainfluen 1 PCR Nasal Parainfluen 2 PCR Nasal Parainfluen 3 PCR Nasal Parainfluen 4 PCR Nasal RSV (PCR) Nasal B.pertussis DNA PCR Nasal C.pneumoniae (PCR) Joshua Human Metapneumo PCR Nasal M.pneumoniae (PCR) Nasal SARS-CoV-2 (PCR) Urine Opiates Screen NEGATIVE Ur Oxycodone Screen NEGATIVE Urine Methadone Screen NEGATIVE Ur Propoxyphene Screen NEGATIVE Ur Barbiturates Screen NEGATIVE Ur Tricyclics Screen NEGATIVE Ur Phencyclidine Scrn NEGATIVE Ur Amphetamine Screen NEGATIVE U Methamphetamines Scrn NEGATIVE U Benzodiazepines Scrn NEGATIVE Urine Cocaine Screen NEGATIVE U Cannabinoids Screen NEGATIVE Ethyl Alcohol - Rads (name of study) head and neck CTA Radiology: Prelim report reviewed (70% right ICA stenosis. 90% vertebral V4 level stenosis 90%. No bleed, no masses. ), See rad report PD Medical Decision Making - ED course Complexity details: reviewed results, considered differential, d/w patient (the patient was not able to answer questions due to her aphasia. Info mainly from family and EMS. ), d/w family, d/w outside solar sales consultant (discussed with stroke neurologist who stated no interventions of lytics nor endovascular approach. advised eval for cva. then discussed with Hospitalist. ) Reviewed Lab Results: I ordered and reviewed chemistry panel and blood count, also ESR to eval for vasculitis and elecrolyte abnormalities in particular. Blood count to evaluate WBC for potential infectious cause. Mostly seems likely cerebrovascular in etiology. Social Determinants of Health: lives at home with family members/daughter. ED course: patient with apparent receptive and expressive aphasia and indifference. Some brief floowing of commands, such as to open mouth, but generally not following direction. No signs of bleed/mass/edema nor LVO on cT/CTA. Will need MRI for full evaluation. Presume cva. - Consults Consults: Consulted (name) (Rosa Isela), Discussed case with (Stroke Neurology), Other (The stroke neurologist said he was unable to see the images as apparently we are having difficulty pushing them to his facility. However I did read the radiology report and he said there would be no acute intervention and advised further stroke work-up with MRI etc.) Departure - Departure Disposition: ED Place in Observation Clinical Impression: Aphasia, Seizure Altered mental status Qualifiers: Altered mental status type: disorientation Qualified Code(s): R41.0 - Disorientation, unspecified Condition: Stable Discharge Date/Time: 04/03/22 15:56
[2022-04-03] MEDS ORDERED: iohexoL-300 100 ML VIAL ONE (10:24)
[2022-04-03 10:30] LABS: PT - PROTHROMBIN TIME 11.1 secs (9.9-12.6)
[2022-04-03 10:35] LABS: ALBUMIN 4.5 g/dL (3.2-5.5); ALBUMIN/GLOBULIN RATIO 1.6 (1.0-2.2); ALKALINE PHOSPHATASE 70 IU/L (42-121); ALT ALANINE AMINOTRANSFERASE 17 IU/L (10-60); AST ASPARTATE AMINOTRANSFERASE 22 IU/L (10-42); BUN - BLOOD UREA NITROGEN 7 mg/dL (6-20); CALCIUM 9.2 mg/dL (8.5-10.3); CARBON DIOXIDE - CO2 22 mmol/L (21-32); CHLORIDE 96 mmol/L (101-111); CREATININE 0.6 mg/dL (0.4-1.0); ETOH - ETHANOL < 5.0 mg/dL; GFR - MDRD 95 (>89); GLUCOSE 108 mg/dL (70-100); LIPASE 44 U/L (22-51); MAGNESIUM 2.1 mg/dL (1.7-2.8); POTASSIUM 3.7 mmol/L (3.5-5.0); SODIUM 130 mmol/L (135-145); TOTAL PROTEIN 7.3 g/dL (6.7-8.2)
--- NOTE | 2022-04-03 11:08 | CT Report ---
PROCEDURE: ANGIO HEAD W/WO INDICATIONS: aphasia and not following direction CONTRAST: Omni 300 100ml TECHNIQUE: Precontrast 4.5 mm thick angled axial sections acquired from the foramen magnum to the vertex. Afte r the administration of intravenous contrast, 1 mm thick sections acquired through the [place] is. Postcontrast 4.5 mm thick sections then re-acquired from the foramen magnum to the vertex. 3-di mensional mruzksk-wuakbyrzk-pvymomszro (MIP) and/or volume rendering reformats were acquired of the c entral intracranial vasculature. For radiation dose reduction, the following was used: automated ex posure control, adjustment of mA and/or kV according to patient size. COMPARISON: CTA neck 04/03/2021 FINDINGS: Image quality: Excellent. Anterior circulation: Intracranial internal carotid arteries are normal in size and flow. The flow within the paired anterior cerebral arteries is normal and symmetric. The flow within the middle cer ebral arteries is normal and symmetric. The anterior communicating artery is seen. No aneurysms are seen. Posterior circulation: The V4 segment of the left vertebral artery is atretic. In addition, there is a focal area of significant calcification with high-grade stenosis. There is a focal area of stenosis approximately 60-70% within the V4 segment of the right vertebral artery.. Flow within the posterior cerebral arteries is normal and symmetric. No aneurysms are seen. CSF spaces: Ventricles are normal in size and shape. Basal cisterns are patent. No extra-axial flu id collections. The ventricular system and cortical sulci demonstrate atrophy, consistent for patient's stated age. There are areas of hypodensity in the periventricular and subcortical white matter. There is no acut e intra or extra-axial fluid collection. No acute hemorrhage, mass lesion or midline shift. Brainst em is unremarkable. Globes are symmetrical. Sinuses demonstrate mild scattered mucosal thickening most notable in the rig ht maxillary sinus. Osseous structures are intact. IMPRESSION: 1. No acute intracranial process. 2. Moderate atrophy and chronic microvascular ischemic changes. 3. Focal areas of bilateral moderate to high-grade stenosis within the V4 segments of the vertebral a rteries bilaterally. Reviewed by: Yudy Schmidt MD on 04/03/2022 11:06 AM PST Approved by: Yudy Schmidt MD on 04/03/2022 11:06 AM PST Station ID: [id number]
[2022-04-03 11:18] LABS: MUDS CUTOFF CONCENTRATIONS CUTOFF CONC BELOW:
--- NOTE | 2022-04-03 11:19 | CT Report ---
PROCEDURE: ANGIO NECK W INDICATIONS: aphasia and not following direction CONTRAST: Omni 300 100ml TECHNIQUE: After the administration of intravenous contrast, 1.5 mm axial sections acquired from the aortic arch to the [place]. Coronal 3-D maximum intensity projection (MIP) and/or volume rendering ref ormats were then performed. For radiation dose reduction, the following was used: automated exposur e control, adjustment of mA and/or kV according to patient size. COMPARISON: CTA head 04/03/2022. FINDINGS: Image quality: Excellent. The origins of the left common, internal and external carotid arteries demonstrate no areas of hemody namically significant stenosis, vascular occlusion or aneurysmal dilation. There is focal area of eric cified plaque with 60-70% within 3 mm of the right internal carotid artery origin. Origin of the lef t vertebral artery and right vertebral artery demonstrate no areas of hemodynamically significant eleanor nosis, vascular occlusion or aneurysmal dilation. The V4 segments of the vertebral arteries demonstra te areas of calcification with stenosis approximately 60-70% on the right and high-grade, greater paula n 90% on the left. Aortic arch demonstrates conventional anatomy. Limited, visualized portions of the subclavian vasculature are unremarkable. Thyroid gland is heterogeneous in appearance. IMPRESSION: 60-70% stenosis within the proximal right internal carotid artery. Focal areas of stenosis within the V4 segment of the vertebral arteries as above, 6070% on the right and greater than 90% on the left. The estimate of stenosis included in the report of the imaging study was calculated using the NASCET method CLINICAL RECOMMENDATION STATEMENTS: In patients <35 years with an ITN detected on CT, MRI, or extrathyroidal ultrasound, the Committee re commends further evaluation with dedicated thyroid ultrasound if the nodule is "e1 cm and has no susp icious imaging features, and if the patient has normal life expectancy. In patients "e35 years with an ITN detected on CT, MRI, or extrathyroidal ultrasound, the Committee r ecommends further evaluation with dedicated thyroid ultrasound if the nodule is "e1.5 cm and has no s uspicious imaging features, and if the patient has normal life expectancy. (ACR, 2014) Reviewed by: Yudy Schmidt MD on 04/03/2022 11:18 AM PST Approved by: Yudy Schmidt MD on 04/03/2022 11:18 AM PST Station ID: [id number]
[2022-04-03 11:22] LABS: BILIRUBIN,URINE NEGATIVE (NEGATIVE); GLUCOSE, URINE (UA) NEGATIVE (NEGATIVE); KETONES,URINE (UA) 15 mg/dL (NEGATIVE); LEUKOCYTE ESTERASE, URINE NEGATIVE (NEGATIVE); NITRITE,URINE NEGATIVE (NEGATIVE); OCCULT BLOOD,URINE NEGATIVE (NEGATIVE); PROTEIN,URINE NEGATIVE (NEGATIVE); UROBILINOGEN,URINE 0.2 (NORMAL) E.U./dL (NORMAL)
[2022-04-03 11:25] LABS: CLARITY,URINE CLEAR (CLEAR)
[2022-04-03 11:31] LABS: AMPHETAMINE SCREEN,URINE NEGATIVE (NEGATIVE); BARBITURATE SCREEN,UR NEGATIVE (NEGATIVE); BENZODIAZEPINES SCREEN, URINE NEGATIVE (NEGATIVE); COCAINE SCREEN URINE NEGATIVE (NEGATIVE); METHADONE SCREEN, URINE NEGATIVE (NEGATIVE); METHAMPHETAMINES SCREEN, URINE NEGATIVE (NEGATIVE); OPIATE SCREEN, URINE NEGATIVE (NEGATIVE); OXYCODONE SCREEN, URINE NEGATIVE (NEGATIVE); PROPOXYPHENE SCREEN, URINE NEGATIVE (NEGATIVE); THC CANNABINOID SCREEN, URINE NEGATIVE (NEGATIVE); TRICYCLIC ANTIDEPRESSANT,URINE NEGATIVE (NEGATIVE)
[2022-04-03] MEDS ORDERED: iohexoL-300 100 ML VIAL IVP ONE (11:50)
[2022-04-03 12:33] LABS: B. PARAPERTUSSIS- RESP PCR PAN NOT DETECTED; B. PERTUSSIS- RESP PCR PANEL NOT DETECTED; C. PNEUMONIAE- RESP PCR PANEL NOT DETECTED; CORONAVIRUS 229E-RESP PCR NOT DETECTED; CORONAVIRUS HKU1-RESP PCR NOT DETECTED; CORONAVIRUS NL63-RESP PCR NOT DETECTED; CORONAVIRUS OC43-RESP PCR NOT DETECTED; HUMAN METAPNEUMOVIRUS NOT DETECTED; INFLUENZA A- RESP PCR PANEL NOT DETECTED; INFLUENZA B - RESP PCR PANEL NOT DETECTED; M. PNEUMONIAE- RESP PCR PANEL NOT DETECTED; PARAINFLUENZA VIRUS 1 NOT DETECTED; PARAINFLUENZA VIRUS 2 NOT DETECTED; PARAINFLUENZA VIRUS 3 NOT DETECTED; PARAINFLUENZA VIRUS 4 NOT DETECTED; RHINOVIRUS/ENTEROVIRUS NOT DETECTED; RSV- RESP PCR PANEL NOT DETECTED; SARS-CoV-2 -RESP PCR PANEL NOT DETECTED
[2022-04-03] MEDS ORDERED: levETIRAcetam 500 MG/5 ML VIAL IVP STA (13:10)
[2022-04-03] MEDS ORDERED: ONDANSETRON 4 MG/2 ML VIAL IVP PRN (14:34)
[2022-04-03] MEDS ORDERED: ONDANSETRON ODT 4 MG TABLET TL PRN (14:34)
[2022-04-03] MEDS ORDERED: oxyCODONE 5 MG TABLET PO PRN (14:34)
[2022-04-03] MEDS ORDERED: SODIUM CHLORIDE FLUSH 0.9% 10 ML SYRINGE IVP PRN (14:34)
[2022-04-03] MEDS ORDERED: ACETAMINOPHEN 325 MG TABLET PO PRN (14:34)
--- NOTE | 2022-04-03 14:53 | HISTORY & PHYSICAL EXAMINATION ---
Chief Complaint - Chief Complaint Chief Complaint: Altered mental status, swollen tongue History of Present Illness - Admitted From Admitted From:: Home via EMS - History Obtained From Records Reviewed: [facility] History obtained from: Dr. Leyva Exam Limitations: Patient is unable to speak or follow commands - History of Present Illness HPI Comment/Other: 86-year-old female who is followed by [facility] and was last seen in clinic February 05, 2022. At that time she was seen for multiple problems such as longstanding shoulder pain and is followed by Dr. Rothman, orthopedics. She was also asking if she still needed to be on Plavix. She had an NSTEMI in 2013 and had a drug-eluting stent placed in her LAD and has been on Plavix, statin, and metoprolol. She then had a stroke in August 25, 2019 with bilateral acute lacunar infarcts and still had residual lip numbness. She was evaluated by neurology and he felt that with a negative cardiac work-up, risk management should still include taking Plavix and statin. [facility] cardiology also saw her September 15, 2019, after her stroke, and he felt that her cardiac work-up has been normal and he recommended a heart monitor and continue statins and beta-isac. Subsequent to his evaluation he states that she did not need to follow-up. She also has a history of a previous carotid endarterectomy in 2016. When she saw her vascular surgeon November 24, 2021, he felt she could stop her Plavix and transition to aspirin while remaining on a statin. Recent carotid Doppler done in 2021 showed less than 50% stenosis bilaterally. With all this data in mind, the provider discontinued Plavix and had her start on aspirin. Since that visit in January, my history is from Dr Leyva and the patient's daughter. They felt that she was becoming more confused. She seems to be going downhill with regards to orientation, and keeping her thought process on tract over the last few days. The patient keeps a journal and in reading her journal they felt like her writing changed substantially in just a few days. Th ere is been no report of fever, chills, seizure. She went to the walk-in clinic April 02 because her tongue was bleeding. It had started bleeding that morning and it was swollen and painful to move. The only new thing she reported taking was a cough drop in men toes. She was swallowing and speaking normally. Even though she was given permission to stop the Plavix she was still taking Plavix. After being seen in the walk-in clinic, she was going to be followed up in her primary care provider office today. But this morning, she was found to be aphasic by stator tester, not remembering anything, and staring blankly into space. EMS was called and she was brought in. Temperature was 37.1. Heart rate 88. Blood pressure 186/99. Respirations 18 and she was 100% on room air. The ER provider was unable to get a history from her and spoke to EMS, family, friends. Her NIHSS score was 19. Her right arm had no effort against gravity, right leg had no effort against gravity, severe aphasia. Could not respond to questions. Could not follow commands. The tongue laceration or abrasion was noted. For the rest of her stay in the emergency room she remained hypertensive. Her labs were normal with regards to CBC, INR, BMP. PCR negative for any viral illness. CT of the head did not have any acute intracranial process. But she had moderate atrophy and chronic microvascular ischemic changes. Focal areas of bilateral moderate to high-grade stenosis within the V4 segment of the vertebral arteries bilaterally. Angiogram of her carotid showed 60 to 70% stenosis within the proximal right internal carotid artery. The ER provider and I discussed the case. She has altered mental status from a differential diagnosis that includes: Stroke, seizure, but no medications were felt to be of concern, and we do not feel that she has an infection since UA is normal. White cell count is normal. And there is no antecedent history of fever, cough, chest congestion. As such I am deciding to bring the patient in as observation status to further evaluate her altered mental status. Her daughter was in the room and able to verify a few points of history. 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 Father at age 75 of [place]. Brother at age 70 of [place], also had diabetes Living arrangement: At home Living Situation: Alone Social History Notes: Never smoked. No history of alcohol abuse. No history of recreational substance abuse - Substance History Use: Uses substance without health or social issues: NONE Abuse: Recurrent use of substance despite neg consequences: NONE Dependence: Experiences withdrawal or developed tolerances: NONE - POLST Patient has POLST: Yes POLST Status: Full Code Meds/Allgy - Home Medications Home Medications: Ambulatory Orders Medication Instructions Recorded Confirmed Atorvastatin Calcium [Lipitor] 80 mg PO QPM 06/02/21 04/03/22 Clopidogrel [Plavix] 1 tab PO DAILY 06/02/21 04/03/22 Famotidine [Pepcid] 20 mg PO DAILY 06/02/21 04/03/22 Metoprolol Succinate [Toprol Xl] 50 mg PO DAILY 06/02/21 04/03/22 Aspirin [[place]orte Aspirin] 81 mg PO DAILY 04/03/22 04/03/22 Nitroglycerin [Nitrostat] 0.4 mg SL Q5MIN PRN 04/03/22 04/03/22 - Allergies Allergies/Adverse Reactions: Allergies Allergy/AdvReac Type Severity Reaction Status Date / Time losartan Allergy Intermediate Itching Verified 04/03/22 14:42 lisinopril AdvReac Intermediate Cough Verified 04/03/22 14:42 Prior Level of Functionality: While she is independent with activities of daily living, able to dress herself, able to feed herself, she has been slowing down. She has a stator tester and she has people coming to help her in her home with regards to keeping it clean and tidy. Other people do grocery shopping. Exam - Vital Signs Reviewed Vital Signs: Yes Vital Signs: Vital Signs x48h Temp Pulse Resp BP Pulse Ox 04/03/22 14:13 80 18 161/150 H 100 04/03/22 13:49 89 18 182/89 H 99 04/03/22 13:15 97 18 176/109 H 99 04/03/22 12:37 82 18 151/74 H 98 04/03/22 11:38 88 18 188/75 H 100 04/03/22 11:14 95 18 181/70 H 99 04/03/22 10:13 37.1 C 88 18 186/99 H 100 - Physical Exam General Appearance: positive: No acute distress, Lethargic (asleep and wakes with firm shake of shoulder but not able to follow commands, daughter says she is speaking again but just not now. Able to recognize her and a photo of family and say their names) Eyes Bilateral: positive: PERRL, EOMI ENT: positive: No signs of dehydration Neck: positive: No JVD. negative: Stiff neck Respiratory: positive: No respiratory distress. negative: Wheezes, Rales, Rhonchi Cardiovascular: positive: Regular rate & rhythm, Systolic murmur Peripheral Pulses: positive: 1+ Abdomen: positive: Non-tender, No organomegaly, Nml bowel sounds, No distention Skin: positive: Warm, Dry, Pallor Extremities: positive: Full ROM (on passive check, she can't follow commands to metal mover her arms and legs for me), No pedal edema Neurologic/Psychiatric: positive: CN's nml (2-12), Disoriented to person, Disoriented to place, Disoriented to time. negative: Motor nml (arms and legs drop when I life them bc she just can't figure out how to keep them up after I lift them, but she will roll over and pulls covers over herself to keep warm), Facial droop Sepsis Event Note (H) - Evaluation Current Stage of Sepsis: Ruled out Conclusion/Plan - Problem List (1) Symptoms of cerebrovascular accident Conclusion/Plan: This patient presents with a history of gradual 4 days progressive of confusion, lack of writing, lack of speech and lack of mobility. Patient's tongue abrasion that was sudden in onset, with bleeding 04/02. She could be having a TIA, she could be having a stroke, or she could have had seizures with prolonged postictal confusion. At home she is on metoprolol XL, more likely for her atrial fibrillation. She has been hypertensive most of the day with diastolics as high as 109. This could go with stroke I tried to verify with her daughter about whether or not she stopped her Plavix in January. Her daughter states that she does not know because she lives in [place]. CT of the head shows some areas of focal stenosis. Objective data for infection is not present. So I do not think she is having sepsis with metabolic encephalopathy. She is not on any medications that would give her drug-induced encephalopathy. There are no electrolyte abnormalities to induce metabolic encephalopathy The differential was discussed with her daughter. The daughter says that she herself has a seizure disorder which manifest as just sudden blank stare and teeth clenching. She is always wondered if mom had a seizure disorder 2. Apparently that was a possibility with the last time she saw the neurologist. Her last TIA may have been a seizure and not a TIA. Daughter cannot remember the name of the neurologist. Plan: MRI tomorrow or today Echocardiogram Telemetry for 24 hours She will need an outpatient EEG and neurology consult. She already has been seen by a excellence coach and neurologist in the past. I am hoping she will be able to make contact with those offices to make these appointments. I will investigate to see what the name of the neurologist is and see if I can do a warm handoff. (2) History of stroke Conclusion/Plan: Bilateral lacunar infarcts in her past medical history. With this admission she does not have any focal deficits. On exam there are no focal deficits. (3) Hypertension Conclusion/Plan: If this is part of a stroke syndrome, I would like to allow her permissive hypertension for the next 72 hours. By tomorrow afternoon I may be resuming her medications for blood pressure or giving her as needed hydralazine. Qualifiers: Hypertension type: primary hypertension Qualified Code(s): I10 - Essential (primary) hypertension - Lab Results Lab results reviewed: Yes Mendez Bones: 04/03/22 10:17 04/03/22 10:17 - Diagnostic Imaging Results Diagnostic Imaging Results: positive: Final report reviewed Diagnostic Imaging Results Comments: CT of the head did not have any acute intracranial process. But she had moderate atrophy and chronic microvascular ischemic changes. Focal areas of bilateral moderate to high-grade stenosis within the V4 segment of the vertebral arteries bilaterally. Angiogram of her carotid showed 60 to 70% stenosis within the proximal right internal carotid artery. - EKG Results EKG Interpreted Independently: No Core Measures - Anticipated LOS I expect patient to be DC'd or transferred within 96 hours.: Yes - DVT/VTE - Prophylaxis VTE/DVT Prophylaxis med ordered at admit?: Yes - Stroke - Rehab Assessment Rehab services assessment to be ordered?: Yes
--- NOTE | 2022-04-03 14:56 | PHARMACY PROGRESS NOTE ---
- Best Possible Medication History Admit Date and Time: Processed by: Pharmacy Medication History completed: Yes Patient Interview: Pt unable to participate Secondary Source(s): Physician records, Pharmacy records, Insurance records As the person ultimately responsible for medication therapy, providers are able to order a medication from an existing home medication list in [facility] via the "Reconcile Routine" prior to Confirmation of that medication by application support engineer. Such practice is discouraged except when the physician, in their clinical judgment, deems that a medical need exists for a medication without regard to previous use.
[2022-04-03] MEDS: SODIUM CHLORIDE FLUSH 0.9% 10 ML SYRINGE IVP SCH (17:53)
[2022-04-03] MEDS: ATORVASTATIN 40 MG TABLET PO SCH (20:45)
[2022-04-04] MEDS: SODIUM CHLORIDE FLUSH 0.9% 10 ML SYRINGE IVP SCH ×4 (01:00→20:54)
[2022-04-04] MEDS: ASPIRIN CHEW 81 MG TABLET PO SCH (09:42)
[2022-04-04] MEDS: METOPROLOL SUCCINATE 50 MG TABLET PO SCH (09:42)
[2022-04-04] MEDS: CLOPIDOGREL 75 MG TABLET PO SCH (09:42)
--- NOTE | 2022-04-04 12:30 | PROVIDER PROGRESS NOTE ---
Subjective - Prog Note Date Prog Note Date: 04/04/22 Prog Note Time: 12:27 - Subjective Pt reports feeling: Improved (per daughters who are at bedside) Subjective: Patient's legal name is Kerry but goes by Sidney. Sidney is sitting up in bed is slow to respond to my presence in the room but does answer direct questions. Sidney's two daughters Yarely and Sari describe their mother as an active fully functioning 86 yo woman who lives alone does all her own chores and participates in the community. They endorse that today Sidney is better, recognizes them, but that this is still far from her baseline. Current Medications - Current Medications Current Medications: Active Medication List (this hospitalization) Acetaminophen (Acetaminophen 325 Mg Tablet) 650 mg PO Q4HR PRN PRN Reason: Pain 1 to 4, or Fever Aspirin (Aspirin Chew 81 Mg Tablet) 81 mg PO DAILY [facility] Last Admin: 04/04/22 09:42 Dose: 81 mg Atorvastatin Calcium (Atorvastatin 40 Mg Tablet) 80 mg PO QPM [facility] Last Admin: 04/03/22 20:45 Dose: Not Given Clopidogrel Bisulfate (Clopidogrel 75 Mg Tablet) 75 mg PO DAILY [facility] Last Admin: 04/04/22 09:42 Dose: 75 mg Metoprolol Succinate (Metoprolol Succinate 50 Mg Tablet) 50 mg PO DAILY [facility] Last Admin: 04/04/22 09:42 Dose: 50 mg Ondansetron HCl (Ondansetron Odt 4 Mg Tablet) 4 mg TL Q6HR PRN PRN Reason: Nausea / Vomiting Ondansetron HCl (Ondansetron 4 Mg/2 Ml Vial) 4 mg IVP Q6HR PRN PRN Reason: Nausea / Vomiting Oxycodone HCl (Oxycodone 5 Mg Tablet) 5 mg PO Q4HR PRN PRN Reason: Pain 5 to 7 Sodium Chloride (Sodium Chloride Flush 0.9% 10 Ml Syringe) 10 ml IVP PRN PRN PRN Reason: NEEDED PER PROVIDER ORDERS Sodium Chloride (Sodium Chloride Flush 0.9% 10 Ml Syringe) 10 ml IVP 0100,0900,1700 [facility] Last Admin: 04/04/22 09:42 Dose: 10 ml Allergies losartan Allergy (Intermediate, Verified 04/03/22 14:42) Itching lisinopril Adverse Reaction (Intermediate, Verified 04/03/22 14:42) Cough Home Medications Aspirin [Rothschild Aspirin] 81 mg PO DAILY 04/03/22 [History Confirmed 04/03/22] Nitroglycerin [Nitrostat] 0.4 mg SL Q5MIN PRN 04/03/22 [History Confirmed 04/03/22] Objective - Vital Signs/Intake & Output Reviewed Vital Signs: Yes Vital Signs: Vital Signs x48h Temp Pulse Resp BP Pulse Ox 04/04/22 09:00 37.4 C 96 20 116/64 98 04/04/22 05:20 37.6 C 108 H 16 134/73 H 98 Intake & Output: Intake & Output 04/01/22 04/02/22 04/03/22 04/04/22 23:59 23:59 23:59 23:59 Intake Total 500 0 Balance 500 0 - Objective General Appearance: positive: No acute distress (Sidney is a well appearing 86 yo female, with glasses, sitting up in bed, appears intermittently absent from conversation and requires frequent prompting to answer questions.) Eyes Bilateral: positive: PERRL, EOMI (not following commands during exam but was able to track me around the room.) ENT: positive: ENT inspection nml, Other (tongue abraision/ contusion) Neck: positive: Nml inspection Respiratory: positive: Chest non-tender, No respiratory distress, Breath sounds nml (shallow breathing) Cardiovascular: positive: Regular rate & rhythm, Tachycardia Peripheral Pulses: 1+ Radial (R), 1+ Radial (L), 1+ Posterior tibialis (R), 1+ Posterior tibialis (L) Abdomen: positive: Non-tender, Nml bowel sounds Back: positive: Nml inspection Skin: positive: Color nml, Dry Extremities: positive: Non-tender, No pedal edema Neurologic/Psychiatric: positive: Disoriented to place, Disoriented to time, Slurred/abnml speech, Depressed mood/affect, Other (Appeared at times disengaged in exam, CN's 2-12 appear intact but exam is limited by pt engagement, frequent prompting and bringing attention back to exam required.) - Lab Results Fish Bones: 04/03/22 10:17 04/03/22 10:17 Other Labs: Lab Results x24hrs 04/03/22 Range/Units 10:59 Nasal Adenovirus (PCR) NOT DETECTED Nasal B. parapertussis DNA (PCR) NOT DETECTED Nasal Coronavir 229E PCR NOT DETECTED Nasal Coronavir HKU1 PCR NOT DETECTED Nasal Coronavir NL63 PCR NOT DETECTED Nasal Coronavir OC43 PCR NOT DETECTED Nasal Enterovir/Rhinovir PCR NOT DETECTED Nasal Influenza B PCR NOT DETECTED Nasal Influenza A PCR NOT DETECTED Nasal Parainfluen 1 PCR NOT DETECTED Nasal Parainfluen 2 PCR NOT DETECTED Nasal Parainfluen 3 PCR NOT DETECTED Nasal Parainfluen 4 PCR NOT DETECTED Nasal RSV (PCR) NOT DETECTED Nasal B.pertussis DNA PCR NOT DETECTED Nasal C.pneumoniae (PCR) NOT DETECTED Joshua Human Metapneumo PCR NOT DETECTED Nasal M.pneumoniae (PCR) NOT DETECTED Nasal SARS-CoV-2 (PCR) NOT DETECTED - Diagnostic Imaging Diagnostic Imaging Results: positive: Final report reviewed Diagnostic Imaging Comments: CTA head 04/03/22 Impression: 60-70% stenosis within the proximal right internal carotid artery. Focal areas of stenosis within the V4 segment of the vertebral arteries as above 60-70% on the right 90% on the left. MRI 04/04/22 Impression: Acute to subacute small lacunar infarcts noted in both cerebellar hemispheres. No intracranial hemorrhage or mass effect. Moderate atrophy and confluent white matter chronic ischemic change. Old left pontine lacunar infarct. Sepsis Event Note (H) - Evaluation Current Stage of Sepsis: Ruled out Assessment/Plan - Problem List (1) Symptoms of cerebrovascular accident Impression: Daughters endorse a change from baseline Saturday night, 04/02 Sudden tongue laceration suspected happened 04/01, unexplained. Differentials include: TIA, stroke, seizures, metabolic encephalopathy, infec tion, intra-cranial lesion Imaging including CTA and MRI this morning do not show any acute hemorrhage or mass effect: stroke less likely, significant carotid and vertebral stenosis so TIA remains a possibility rule out intra-cranial lesion Na 130, vitals stable, on very few meds at home no reason to suspect medication overdose or medication reaction: Metabolic encephalopathy less l ikely Infection: no white count today, no fevers this admission, does not appear to be septic. rule out infectious process Seizure: lack of acute findings on imaging, old infarcts, time line of e vents, and family history support seizure diagnosis Plan: ECHO, continue telemetry, TSH for metabolic encephalopathy (2) Seizure disorder Impression: The patient appears to have bit her own tongue, has family history, her daughter, of a seizure disorder, has had prior TIA that was suspected to be a seizure. Daughters endorse that Saturday night 04/02, she was not acting normally. No findings of acute ischemic or hemorrhagic stroke on imaging this admission. Plan: start [facility] inpatient, follow-up outpatient neurology (3) Hyponatremia Impression: Na 130 this am Plan: NS maintenance IV (4) Hypochloremia Impression: Chloride 96 on todays labs. Plan: NS maintenance IV (5) History of stroke Impression: Bilatera lacunar infarcts in her past medical history. This admission there are no focal deficits. (6) Hypertension Impression: SBP as high as 152 today. Does not appear to be treated, no home meds for blood pressure. Cannot rule out stroke as cause for her current symptoms Plan: allow permissive hypertension for next 48 hours, this will be a total of 72 hours of permissive hypertension. Qualifiers: Hypertension type: primary hypertension Qualified Code(s): I10 - Essential (primary) hypertension
--- NOTE | 2022-04-04 13:19 | MRI Report ---
PROCEDURE: MRI brain without contrast INDICATIONS: acute aphasia, blank stare, tongue lac TECHNIQUE: Noncontrast axial T1 spin echo, axial T2 fast spin echo, sagittal and axial FLAIR, coronal T2 fast sp in echo, axial gradient echo, axial diffusion and ADC through the brain. COMPARISON: None. FINDINGS: Image quality: Excellent. CSF Spaces: Basal cisterns are patent. No extra-axial fluid collections. Ventricles are normal in size and shape. Brain: No intracranial masses or hemorrhage. Brower/white matter interface is normal. Brainstem appe ars normal. There are punctate foci of restricted diffusion noted in both cerebellar hemispheres cassandra uring less than 3 mm each. No associated hemorrhage or mass effect. Normal intravascular flow voids are present. Moderate atrophy and confluent white matter chronic ischemic change noted. Old lacunar infarcts noted in the left rubio Skull and face: Calvarium has normal marrow signal. Orbits appear normal. Bilateral intraocular le ns replacements noted. Sinuses: Sinuses and mastoids are clear. IMPRESSION: 1. Acute to subacute small lacunar infarcts noted in both cerebellar hemispheres. No intracranial hem orrhage or mass effect. 2. Moderate atrophy and confluent white matter chronic ischemic change . Old left pontine lacunar inf arct Reviewed by: Dayne Villaseñor MD on 04/04/2022 12:17 PM [place] Approved by: Dayne Villaseñor MD on 04/04/2022 12:17 PM [facility] Station ID: [id number]
[2022-04-04] MEDS: SODIUM CHLORIDE 0.9% 1,000 ML IV SCH (18:26)
[2022-04-04] MEDS: ATORVASTATIN 40 MG TABLET PO SCH (20:45)
[2022-04-04] MEDS: levETIRAcetam 500 MG/5 ML UDC PO SCH (20:45)
[2022-04-04] MEDS: LIDOCAINE VISCOUS 2% 100 ML BOTTLE MM PRN (20:46)
--- NOTE | 2022-04-05 07:45 | PROVIDER PROGRESS NOTE ---
Subjective - Prog Note Date Prog Note Date: 04/05/22 Prog Note Time: 07:45 - Subjective Subjective: 86 yo female seen for AMS seizure vs lacunar stroke, PMH RANGEL to LAD, carotid stenosis, HTN, PVD, similar episode in August 2019 I encounter Sidney sitting up in bed looking at her phone. She provides one word answers to my questions then admits that she is frustrated and that she wants to go home. 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 She is very upset that she cannot drive, and has concerns about the cost of this hospitalization as well as home health. She recognizes she requires supports to be able to get back to her life and is counting on her daughters for help. Current Medications - Current Medications Current Medications: Acetaminophen (Acetaminophen 325 Mg Tablet) 650 mg PO Q4HR PRN PRN Reason: Pain 1 to 4, or Fever Last Admin: 04/04/22 13:06 Dose: 650 mg Aspirin (Aspirin Chew 81 Mg Tablet) 81 mg PO DAILY [facility] Last Admin: 04/04/22 09:42 Dose: 81 mg Atorvastatin Calcium (Atorvastatin 40 Mg Tablet) 80 mg PO QPM [facility] Last Admin: 04/04/22 20:45 Dose: 80 mg Clopidogrel Bisulfate (Clopidogrel 75 Mg Tablet) 75 mg PO DAILY [facility] Last Admin: 04/04/22 09:42 Dose: 75 mg Sodium Chloride (Normal Saline 0.9%) 1,000 mls @ 83.333 mls/hr IV .Q12H [facility] Last Admin: 04/04/22 18:26 Dose: 83.333 mls/hr Levetiracetam (Levetiracetam 500 Mg/5 Ml Udc) 500 mg PO BID [facility] Last Admin: 04/04/22 20:45 Dose: 500 mg Lidocaine HCl (Lidocaine Viscous 2% 100 Ml Bottle) 5 ml MM Q4H PRN PRN Reason: Mouth Sore Pain Last Admin: 04/04/22 20:46 Dose: 5 ml Metoprolol Succinate (Metoprolol Succinate 50 Mg Tablet) 50 mg PO DAILY [facility] Last Admin: 04/04/22 09:42 Dose: 50 mg Ondansetron HCl (Ondansetron Odt 4 Mg Tablet) 4 mg TL Q6HR PRN PRN Reason: Nausea / Vomiting Ondansetron HCl (Ondansetron 4 Mg/2 Ml Vial) 4 mg IVP Q6HR PRN PRN Reason: Nausea / Vomiting Oxycodone HCl (Oxycodone 5 Mg Tablet) 5 mg PO Q4HR PRN PRN Reason: Pain 5 to 7 Sodium Chloride (Sodium Chloride Flush 0.9% 10 Ml Syringe) 10 ml IVP PRN PRN PRN Reason: NEEDED PER PROVIDER ORDERS Sodium Chloride (Sodium Chloride Flush 0.9% 10 Ml Syringe) 10 ml IVP 0100,0900,1700 ORLIN Last Admin: 04/04/22 20:54 Dose: 10 ml Objective - Vital Signs/Intake & Output Reviewed Vital Signs: Yes Vital Signs: Vital Signs x48h Temp Pulse Resp BP Pulse Ox 04/05/22 04:52 36.5 C 62 16 124/49 L 98 04/05/22 00:14 36.6 C 63 16 140/63 H 97 Intake & Output: Intake & Output 04/02/22 04/03/22 04/04/22 04/05/22 23:59 23:59 23:59 23:59 Intake Total 500 600 Balance 500 600 - Objective General Appearance: positive: Moderate distress (Sidney is sitting up in bed looking at herself phone. She appears anxious, folding and refolding her hands.) Eyes Bilateral: positive: Normal inspection, PERRL Neck: positive: Nml inspection Respiratory: positive: Chest non-tender, No respiratory distress Cardiovascular: positive: Regular rate & rhythm Peripheral Pulses: 1+ Radial (R), 1+ Radial (L), 1+ Dorsalis pedis (R), 1+ Dorsalis pedis (L) Abdomen: positive: Nml bowel sounds Back: positive: Nml inspection Skin: positive: Color nml Extremities: positive: Non-tender Neurologic/Psychiatric: positive: Oriented x3, CN's nml (2-12), Slurred/abnml speech - Lab Results Fish Bones: 04/03/22 10:17 04/03/22 10:17 - Diagnostic Imaging Diagnostic Imaging Results: positive: Final report reviewed Diagnostic Imaging Comments: CTA head 04/03/22 Impression: 60-70% stenosis within the proximal right internal carotid artery. Focal areas of stenosis within the V4 segment of the vertebral arteries as above 60-70% on the right 90% on the left. MRI 2/15/23 Impression: Acute to subacute small lacunar infarcts noted in both cerebellar hemispheres. No intracranial hemorrhage or mass effect. Moderate atrophy and confluent white matter chronic ischemic change. Old left pontine lacunar infarct. ECHO 04/04/22 EF 60-65% no acute thrombus or mass Sepsis Event Note (H) - Evaluation Current Stage of Sepsis: Ruled out Assessment/Plan - Problem List (1) Symptoms of cerebrovascular accident Impression: Daughters endorse a change from baseline Saturday, 04/02 Sudden tongue laceration suspected happened 04/01, unexplained. Differentials include: TIA, stroke, seizures, metabolic encephalopathy, infection, intra-cranial lesion Imaging including CTA and MRI this morning do not show any acute hemorrhage or mass effect: MRI did show acute and subacute lacunar infarcts. Rule out intra-cranial lesion. Vitals stable, on very few meds at home no reason to suspect medication overdose or medication reaction: Metabolic encephalopathy less likely Infection: no white count, no fevers this admission, does not appear to be septic. rule out infectious process Seizure: old infarcts, time line of events, and family history support seizure diagnosis Plan: continue telemetry, TSH for metabolic encephalopathy, order PT/OT eval (2) Seizure disorder Impression: The patient appears to have bit her own tongue, has family history, her daughter, of a seizure disorder, has had prior TIA that was suspected to be a seizure. Daughters endorse that Saturday night 04/02, she was not acting normally. No findings of acute ischemic or hemorrhagic stroke on imaging this admission. Plan: start [facility] inpatient, follow-up outpatient neurology (3) Hyponatremia Impression: Na 130 on 04/03 labs Plan: NS maintenance IV (4) Hypochloremia Impression: Chloride 96 on 04/03 labs Plan: NS maintenance IV (5) History of stroke Impression: Bilatera lacunar infarcts in her past medical history. This admission there are no focal deficits. (6) Hypertension Impression: SBP as high as 152 this admission. Does not appear to be treated, no home meds for blood pressure. Cannot rule out stroke as cause for her current symptoms Plan: allow permissive hypertension for next 24 hours, this will be a total of 72 hours of permissive hypertension. Qualifiers: Hypertension type: primary hypertension Qualified Code(s): I10 - Essential (primary) hypertension
[2022-04-05] MEDS: LIDOCAINE VISCOUS 2% 100 ML BOTTLE MM PRN ×2 (08:25→15:59)
[2022-04-05] MEDS: SODIUM CHLORIDE 0.9% 1,000 ML IV SCH (08:48)
[2022-04-05] MEDS: SODIUM CHLORIDE FLUSH 0.9% 10 ML SYRINGE IVP SCH (08:54)
[2022-04-05] MEDS: CLOPIDOGREL 75 MG TABLET PO SCH (09:14)
[2022-04-05] MEDS: METOPROLOL SUCCINATE 50 MG TABLET PO SCH (09:14)
[2022-04-05] MEDS: ASPIRIN CHEW 81 MG TABLET PO SCH (09:14)
[2022-04-05] MEDS: levETIRAcetam 500 MG/5 ML UDC PO SCH ×2 (11:01→19:27)
--- NOTE | 2022-04-05 13:52 | DISCHARGE SUMMARY ---
"Discharge Summary Admit Date: 04/03/22 Discharge Date: 04/05/22 Discharging Provider: Vanessa Gatica MD Primary Care Provider: Heather Oconnor Code Status: Attempt Resuscitation Condition at Discharge: Stable Discharge Disposition: 01 Home, Self Care - DIAGNOSES Discharge Diagnoses with Status of Each Condition: 1. acute bilateral lacunar infarcts- improved 2. seizure disorder- new diagnosis now treated 3. hyponatremia- stable 4. hypochoremia- stable 5. History of stroke- stable/ chronic 6. hypertension- chronic - HPI History of Present Illness: 86-year-old female who is followed by our local [facility] and was last seen in clinic February 05, 2022. At that time she was seen for multiple problems such as longstanding shoulder pain and is followed by Dr. Rothman, orthopedics. She was also asking if she still needed to be on Plavix. She had an NSTEMI in 2013 and had a drug-eluting stent placed in her LAD and has been on Plavix, statin, and metoprolol. She then had a stroke in August 25, 2019 with bilateral acute lacunar infarcts and still had residual lip numbness. She was evaluated by neurology and he felt that with a negative cardiac work-up, risk management should still include taking Plavix and statin. [facility] cardiology also saw her September 15, 2019, after her stroke, and he felt that her cardiac work-up has been normal and he recommended a heart monitor and continue statins and beta-isac. Subsequent to his evaluation he states that she did not need to follow-up. She also has a history of a previous carotid endarterectomy in 2017. When she saw her vascular surgeon November 24, 2021, he felt she could stop her Plavix and transition to aspirin while remaining on a statin. Recent carotid Doppler done in 2021 showed less than 50% stenosis bilaterally. With all this data in mind, the provider discontinued Plavix and had her start on aspirin. Since that visit in January, my history is from Dr Leyva and the patient's daughter. They felt that she was becoming more confused. She seems to be going downhill with regards to orientation, and keeping her thought process on tract over the last few days. The patient keeps a journal and in reading her journal they felt like her writing changed substantially in just a few days. There is been no report of fever, chills, seizure. She went to the walk-in clinic April 02 because her tongue was bleeding. It had started bleeding that morning and it was swollen and painful to move. The only new thing she reported taking was a cough drop in men toes. She was swallowing and speaking normally. Even though she was given permission to stop the Plavix she was still taking Plavix. After being seen in the walk-in clinic, she was going to be followed up in her primary care provider office today. But this morning, she was found to be aphasic by sprinkler tender, not remembering anything, and staring blankly into space. EMS was called and she was brought in. Temperature was 37.1. Heart rate 88. Blood pressure 186/99. Respirations 18 and she was 100% on room air. The ER provider was unable to get a history from her and spoke to EMS, family, friends. Her NIHSS score was 19. Her right arm had no effort against gravity, right leg had no effort against gravity, severe aphasia. Could not respond to questions. Could not follow commands. The tongue laceration or abrasion was noted. For the rest of her stay in the emergency room she remained hypertensive. Her labs were normal with regards to CBC, INR, BMP. PCR negative for any viral illness. CT of the head did not have any acute intracranial process. But she had moderate atrophy and chronic microvascular ischemic changes. Focal areas of bilateral moderate to high-grade stenosis within the V4 segment of the vertebral arteries bilaterally. Angiogram of her carotid showed 60 to 70% stenosis within the proximal right internal carotid artery. The ER provider and I discussed the case. She has altered mental status from a differential diagnosis that includes: Stroke, seizure, but no medications were felt to be of concern, and we do not feel that she has an infection since UA is normal. White cell count is normal. And there is no antecedent history of fever, cough, chest congestion. As such I am deciding to bring the patient in as observation status to further evaluate her altered mental status. Her daughter was in the room and able to verify a few points of history. - CONSULTS | PROCEDURES Consultations: Dr. Cuauhtemoc Murphy (neurology) Procedures: CTA head 04/03/22- right carotid artery stenosis, focal stenosis V4 segment vertebral areteries MRI 04/04/22 acute and subacute small lacunar infarcts in bilateral hemispheres. No intracranial hemorrhage or mass effect. Moderate atrophy and confluent white matter chronic ischemic change. Old left pontine lacunar infarct ECHO 04/05/22- EF 60-65% Grade I diastolic dysfunction, No mass or thrombus - HOSPITAL COURSE Hospital Course: Patient was placed in observation,04/03/22 in near catatonic state, completely aphasic. EKG and telemetry did not reveal any afib. On Saturday her complete aphasia had improved, she recognized her daughters and was able to minimally participate in conversations mostly answering to yes/ no questions. No temperatures or white count seen during hospitalization. By 04/05 her affect was much brighter more participatory in conversations asking appropriate follow up questions. Diagnosis of seizure made based on her story and family history, daughter has a seizure disorder, along with lacunar stroke based on MRI imaging. Plan made to discharge home with home health care for rehab. Adult daughters at bedside state they will stay with her at her home until she can be more independent. Discharge vitals T 36.9 oral, HR 64, BP 111/55, RR 14, SpO2 100% RADonald Little is a frail slightly withdrawn appearing elderly female. Her speech lacks some fluidity and she at time searches for words. She is 5 feet 1 inches tall weighs 53 kg. Speech therapy evaluated prior to discharge and gave home instructions. Pt and family is emphatic that they want to go home with home health for rehab not go to a rehab facility. - ALLERGIES Allergies/Adverse Reactions: Allergies Allergy/AdvReac Type Severity Reaction Status Date / Time losartan Allergy Intermediate Itching Verified 04/03/22 14:42 lisinopril AdvReac Intermediate Cough Verified 04/03/22 14:42 - MEDICATIONS Home Medications: Ambulatory Orders Medication Instructions Recorded Confirmed Atorvastatin Calcium [Lipitor] 80 mg PO QPM 06/02/21 04/03/22 Clopidogrel [Plavix] 1 tab PO DAILY 06/02/21 04/03/22 Famotidine [Pepcid] 20 mg PO DAILY 06/02/21 04/03/22 Metoprolol Succinate [Toprol Xl] 50 mg PO DAILY 06/02/21 04/03/22 Aspirin [[place] Aspirin] 81 mg PO DAILY 04/03/22 04/03/22 Nitroglycerin [Nitrostat] 0.4 mg SL Q5MIN PRN 02/14/23 02/14/23 - PHYSICAL EXAM AT DISCHARGE General Appearance: positive: No acute distress Eyes Bilateral: positive: Normal inspection, PERRL ENT: positive: ENT inspection nml Neck: positive: Nml inspection Respiratory: positive: Chest non-tender Cardiovascular: positive: Regular rate & rhythm Peripheral Pulses: positive: 1+ Abdomen: positive: Non-tender, Nml bowel sounds Back: positive: Nml inspection Skin: positive: Color nml, Warm, Dry Extremities: positive: Non-tender, Full ROM, No pedal edema Neurologic/Psychiatric: positive: Oriented x3, Slurred/abnml speech - LABS Result Diagrams: 04/03/22 10:17 04/03/22 10:17 - DIAGNOSTIC IMAGING Diagnostic Imaging Results: Final report reviewed - SEPSIS Current Stage of Sepsis: Ruled out - TIME SPENT Time Spent in Discharge (Minutes): 35"
--- NOTE | 2022-04-05 18:39 | Discharge Plan ---
Discharge Plan Problem Reviewed?: Yes Disposition: Home, Self Care Condition: Stable Prescriptions: levETIRAcetam [Keppra] 500 mg PO BID #60 ea Lidocaine Viscous 2% [Xylocaine Viscous 2%] 5 ml MM Q4H PRN #30 ml PRN Reason: Mouth Sore Pain Diet: Regular Shower Restrictions: No Driving Restrictions: Yes (no driving) Assistance Devices: Walker Plan of Treatment: Please see your primary care provider Heather Oconnor in follow-up. They may need to refer you to ear nose and throat to take care of your tongue. The speech pathologist has seen you and recommends an electric toothbrush to be used against your teeth that way you do not have to rub against your tongue, and it will reduce friction against your tongue. I have also prescribed a lidocaine mouthwash. Take a teaspoon of the lidocaine, mix it in a couple of tablespoons of hot water and then rinse and spit your mouth to help with your tongue pain. Please see Dr. Murphy your Neurologist in follow-up. He has been given a handoff on you and knows that you were in the hospital for the stroke and seizures. He is the recommended the Keppra for the seizure that caused your tongue la ceration. To help regain your strength and function, I have ordered home health. I have ordered physical therapy, Occupational Therapy, speech therapy, and a director social service in follow-up. Please resume all your usual home medications. I have not made any changes other than adding the Keppra. Make sure you take both Plavix and aspirin. No Smoking: If you smoke, Please STOP! Call for help. Follow-up with: Heather Oconnor PA [Provider Admit Priv/Credential] - Merlin Arnold MD [Physician No Access] -
[2022-04-05 19:01] VITALS: BP 151/61
== END 2022-04-05 19:30 | disposition home or self-care (01) ==
LOC: MERGE 09:57 → ED 09:57 → MS2 14:34
PROVIDERS: ADMIT Specialist; ATTEND Specialist
DX: I63.81 Other cerebral infarction due to occlusion or stenosis of small artery (principal); R47.01 Aphasia; R29.810 Facial weakness; R47.81 Slurred speech; I25.10 Atherosclerotic heart disease of native coronary artery without angina pectoris; S01.512A Laceration without foreign body of oral cavity, initial encounter; X58.XXXA Exposure to other specified factors, initial encounter; E87.1 Hypo-osmolality and hyponatremia; E87.8 Other disorders of electrolyte and fluid balance, not elsewhere classified; I10 Essential (primary) hypertension; G40.909 Epilepsy, unspecified, not intractable, without status epilepticus; Z95.5 Presence of coronary angioplasty implant and graft; Z79.02 Long term (current) use of antithrombotics/antiplatelets; R29.719 NIHSS score 19; Z79.82 Long term (current) use of aspirin; Z86.73 Personal history of transient ischemic attack (TIA), and cerebral infarction without residual deficits; Z20.822 Contact with and (suspected) exposure to COVID-19
CPT/HCPCS: 36415; 70496; 70498; 70551; 80053; 80306; 81003; 83690; 83735; 85025; 85610; 85651; 87633; 92523; 92610; 93005; 93306; 96361; 96374; 97161; 97165; 97535; 99284; 99285; A9270; G0378; G0480; Q9967; 80320; 81001; 83615; 87086

== ENCOUNTER 2022-05-18 11:51 | Outpatient (CLI) | payer MEDICARE ==
[~2022-05-18 11:51] MED LIST changes: -BUFFERED LIDOCAINE 10 ML SYRINGE ONE; +GADOBUTROL 7.5 MMOL/7.5 ML VIAL ONE; -ROPIVACAINE 0.5% PF 20 ML AMPULE ONE; -TRIAMCINOLONE 40 MG/ML VIAL ONE
[2022-05-18 12:19] LABS: CREATININE 0.6 mg/dL (0.4-1.0)
[2022-05-18] MEDS ORDERED: GADOBUTROL 7.5 MMOL/7.5 ML VIAL IVP ONE (13:13)
--- NOTE | 2022-05-18 13:51 | XRAY Report ---
PROCEDURE: Chest 2 View X-Ray INDICATIONS: ACUTE COUGH TECHNIQUE: 2 views of the chest were acquired. COMPARISON: None. FINDINGS: Surgical changes and devices: None. Lungs and pleura: No pleural effusions or pneumothorax. Lungs are clear. Mediastinum: Mediastinal contours appear normal. Heart size is normal. Bones and chest wall: No suspicious bony lesions. Overlying soft tissues appear unremarkable. IMPRESSION: No acute cardiopulmonary process. Reviewed by: Jarrell Spence on 05/18/2022 1:49 PM PDT Approved by: Jarrell Spence on 05/18/2022 1:49 PM PDT Station ID: [id number]
--- NOTE | 2022-05-18 18:55 | MRI Report ---
PROCEDURE: BRAIN W/WO INDICATIONS: BLURRED VISION CONTRAST: GADAVIST 5.0 ML TECHNIQUE: Noncontrast axial T1 spin echo, axial T2 fast spin echo, sagittal and axial FLAIR, coronal T2 fast sp in echo, axial gradient echo, axial diffusion and ADC through the brain. After the administration of contrast, axial and coronal T1 spin echo with fat saturation through the brain. COMPARISON: 04/04/2022 FINDINGS: Image quality: Diagnostic, with note made of motion artifact. CSF spaces: Basal cisterns are patent. No extra-axial fluid collections. Ventricles are normal in size and shape. Brain: No midline shift. No intracranial bleeds or masses. No abnormal intracranial enhancement. There is cerebral volume loss for age. There is periventricular white matter chronic small vessel is chemic change. The brainstem appears normal. Diffusion-weighted images demonstrate no acute ischemi c insults. No chronic ischemic insults. Normal intravascular flow voids are present. Skull and face: Calvarial marrow is normal in signal. Orbits appear normal. Incidental note is ma de of bilateral lens replacements. Sinuses: Sinuses and mastoids appear clear. IMPRESSION: Study within normal limits for age, without a cause of the patient's presenting history identified. No findings of acute or subacute infarction are seen. No masses or abnormal enhancement can be seen. Reviewed by: Shemar Busch MD on 05/18/2022 5:54 PM ROSIE Approved by: Shemar Busch MD on 05/18/2022 5:54 PM ROSIE Station ID: [id number]
== END 2022-05-18 11:52 | disposition home or self-care (01) ==
LOC: LAB 11:51
PROVIDERS: ATTEND Physician Assistant
DX: H53.8 Other visual disturbances (principal); R05.1 Acute cough
CPT/HCPCS: 36415; 70553; 71046; 82565; A9585

== ENCOUNTER 2022-07-18 10:21 | Outpatient (CLI) | payer MEDICARE ==
[2022-07-18 12:06] LABS: BASOPHILS % (AUTO) 0.3 %; EOSINOPHILS # (AUTO) 0.1 10^3/uL (0.0-0.7); EOSINOPHILS % (AUTO) 0.8 %; HCT - HEMATOCRIT 36.1 % (37.0-47.0); HGB - HEMOGLOBIN 12.1 g/dL (12.0-16.0); LYMPHOCYTES % (AUTO) 33.6 %; MEAN CORPUSCULAR HEMOGLOBIN 32.5 pg (27.0-31.0); MEAN CORPUSCULAR HGB CONC 33.5 g/dL (32.0-36.0); MEAN PLATELET VOLUME 11.8 fL (7.9-10.8); MONOCYTES # (AUTO) 0.6 10^3/uL (0.0-1.0); MONOCYTES % (AUTO) 9.5 %; NEUTROPHILS # (AUTO) 3.3 10^3/uL (1.5-6.6); NEUTROPHILS % (AUTO) 55.5 %; PLT - PLATELET COUNT 356 10^3/uL (130-450); RED BLOOD COUNT 3.72 10^6/uL (4.20-5.40); RED CELL DISTRIBUTION WIDTH 14.3 % (12.0-15.0); WHITE BLOOD COUNT 5.9 x10^3/uL (4.8-10.8)
[2022-07-18 13:35] LABS: % IRON SATURATION 36 % (20-50); IRON 136 ug/dL (28-170); TOTAL IRON BINDING CAPACITY 379 ug/dL (250-450); TRANSFERRIN 271 mg/dL (192-382)
[2022-07-18 13:54] LABS: FERRITIN 79.4 ng/mL (11.0-306.8)
== END 2022-07-18 10:22 | disposition home or self-care (01) ==
LOC: LAB.N 10:21
PROVIDERS: ATTEND Physician Assistant
DX: L65.9 Nonscarring hair loss, unspecified (principal); R53.83 Other fatigue
CPT/HCPCS: 36415; 82607; 82728; 83540; 84466; 85025

== ENCOUNTER 2023-01-20 19:00 | Outpatient (CLI) | payer MEDICARE | END 2023-01-20 19:01 | disposition EMS.NT | LOC: EMS 19:00 | DX: R41.82 Altered mental status, unspecified (principal); F10.90 Alcohol use, unspecified, uncomplicated ==

== ENCOUNTER 2023-04-19 13:43 | Outpatient (CLI) | payer MEDICARE ==
--- NOTE | 2023-04-20 14:59 | DEXA Report ---
PROCEDURE: Dexa Spine and/or Hip INDICATIONS: OSTEOPOROSIS TECHNIQUE: Dual energy x-ray absorptiometry (DXA) was performed on a [employer] System. Regions measur ed are the AP Spine, femoral neck, and if needed forearm. COMPARISON: DEXA 10/21/2019 FINDINGS: Lumbar Spine: Bone Mineral Density: 1.281 g/cm/cm,T score: 0.8, compared to -0.6. Left Femoral Neck: Bone Mineral Density: 0.684 g/cm/cm, T score: -2.5, compared to -2.7. Left Hip: Bone Mineral Density: 0.696 g/cm/cm,T score: -2.5, unchanged. (T score greater or equal to -1.0: NORMAL) (T score from -1.1 to -2.4: OSTEOPENIA) (T score less than or equal to -2.5 to: OSTEOPOROSIS) Impression: By WHO criteria, this patient has osteoporosis in the left femoral neck and hip similar versus slight ly improved compared to prior exam. Patients with diagnosis of osteoporosis or osteopenia should have regular bone mineral density assess ment. For those eligible for Medicare, routine testing is allowed once every 2 years. Testing frequ ency can be increased for patients who have rapidly progressing disease or for those who are receivin g medical therapy to restore bone mass. Reviewed by: Yudy Schmidt MD on 04/20/2023 2:58 PM PST Approved by: Yudy Schmidt MD on 04/20/2023 2:58 PM PST Station ID: [id number]
== END 2023-04-19 13:44 | disposition home or self-care (01) ==
LOC: DI 13:43
PROVIDERS: ATTEND Physician Assistant
DX: M81.0 Age-related osteoporosis without current pathological fracture (principal)